=== PATIENT | female | born 1985 | race American Indian/Alaskan Native ===

== ENCOUNTER 2017-09-25 07:58 | Outpatient (CLI) | payer BC ==
--- NOTE | 2017-09-25 08:53 | Mammography Report ---
Bilateral digital screening mammogram with CAD. Findings: There are scattered fibroglandular densities. In the right breast at the 6:00 position, there is an ill-defined rounded asymmetric density. No Architectural distortion or suspicious calcifications are seen. The left breast is unremarkable. Impression: Right parenchymal asymmetry. BI-RADS code: 0. Recommendation: Spot compression images and ultrasound if needed.
--- NOTE | 2017-09-25 15:57 | Mammography Report ---
Diagnostic right mammogram and targeted right breast ultrasound. History: Recall for asymmetry. Findings: The spot compression image in the MLO projection and a straight effacement of the previously noted density which is not seen on the 90 degree lateral medial view. On the spot compression view in the CC projection, there is minimal residual density medially, with partial effacement. Sonographic evaluation of the medial aspect of the left breast demonstrates a sharply circumscribed ovoid shaped hypoechoic lesion measuring 9.2 x 3.5 x 8.7 mm. Low anterior echoes are present, but no acoustic shadowing or other suspicious findings. This does not correlate in size or location to the mammographic asymmetry. Impression: Subcentimeter benign-appearing lesion at the 12:00 position of the right breast. BI-RADS code: 3. Recommendation: 6 month followup targeted ultrasound.
== END 2017-09-25 07:59 | disposition home or self-care (01) ==
LOC: MAMMO 07:58
PROVIDERS: ATTEND Internal Medicine
DX: Z12.31 Encounter for screening mammogram for malignant neoplasm of breast (principal); N64.89 Other specified disorders of breast
CPT/HCPCS: 77067

== ENCOUNTER 2019-02-26 10:28 | Outpatient (CLI) | payer BC ==
--- NOTE | 2019-02-26 13:26 | Mammography Report ---
RIGHT BREAST ULTRASOUND AND RIGHT DIGITAL DIAGNOSTIC MAMMOGRAM: 02/26/19 10:28:00 CLINICAL: The ultrasound was performed as a followup for a probably benign hypoechoic lesion at 12 o'clock identified on 09/25/17. She did not return for short-term followup as recommended. She has had a reduction mammoplasty. COMPARISON:09/25/17 mammogram and right breast ultrasound FINDINGS: Ultrasound of the right breast was performed at 12 o'clock and failed to demonstrate a lesion to correlate with the previously described oval 9 mm hypoechoic lesion. At the time of the ultrasound, the patient pointed out a palpable lump in the outer breast and ultrasound of this area demonstrated a solid irregular hypoechoic shadowing mass at 9 o'clock 6 cm from the nipple. It measures 6 x 7 x 6 mm. ML, MLO and spot magnification MLO and CC views were performed and demonstrated an irregular spiculated mass at 9 o'clock which correlates with the mass identified by ultrasound. The mass is new compared to the last mammogram. No other mass, architectural distortion or suspicious calcifications. IMPRESSION: A suspicious 7 mm right breast mass at 9 o'clock 6 cms from the nipple. Recommend ultrasound-guided needle biopsy. BI-RADS CATEGORY: 4--Suspicious I discussed the findings and the recommendation for needle core biopsy with the patient at the time of the examination. COMMENT: 1. Dense breast tissue, i.e., adenosis, fibrocystic changes, etc., may obscure an underlying neoplasm. 2. Approximately 10% of cancers are not detected with mammography. 3. A negative mammography report should not delay biopsy if a clinically suspicious mass is present. COMMENT: Patient follow-up letters are generated by our [employer] application.
--- NOTE | 2019-02-26 13:52 | Ultrasound Report ---
ULTRASOUND PELVIC COMPLETE ULTRASOUND TRANSVAGINAL HISTORY: Ovarian cyst bilateral. COMPARISON: None at this facility. TECHNIQUE: Transabdominal and transvaginal ultrasound with color doppler interrogation. FINDINGS: Uterus: The uterus is anteverted. The uterus measures 8.8 x 4.5 x 5.0 cm. There is no evidence for uterine fibroid disease. There is a focal myometrial calcification in the posterior wall measuring 4 mm of doubtful clinical significance. The cervix is unremarkable. Endometrium: 4 mm. No focal abnormality. Right ovary: 3.3 x 2.1 x 2.6 cm. No focal abnormality. Left ovary: 3.1 x 1.8 x 2.5 cm. No focal abnormality. No pelvic fluid or mass is identified. Normal color doppler interrogation. IMPRESSION: Unremarkable transabdominal and transvaginal pelvic ultrasounds. No ovarian cysts are identified.
== END 2019-02-26 10:29 | disposition home or self-care (01) ==
LOC: US 10:28
PROVIDERS: ATTEND Internal Medicine
DX: N83.201 Unspecified ovarian cyst, right side (principal); N83.202 Unspecified ovarian cyst, left side; N63.11 Unspecified lump in the right breast, upper outer quadrant; R92.8 Other abnormal and inconclusive findings on diagnostic imaging of breast
CPT/HCPCS: 76830; 76856

== ENCOUNTER 2019-03-04 14:54 | Outpatient (CLI) | payer BC ==
--- NOTE | 2019-03-04 15:58 | Mammography Report ---
RIGHT DIGITAL DIAGNOSTIC MAMMOGRAM: 03/04/19 14:54:00 CLINICAL: For clip placement immediately status post ultrasound biopsy. COMPARISON:02/26/19 FINDINGS: A biopsy clip is now identified in the upper outer quadrant and correlates with the previously identified lesion. IMPRESSION: Concordant clip placement status post ultrasound biopsy. BI-RADS CATEGORY: 4--Suspicious Pathology pending.
--- NOTE | 2019-03-04 16:03 | Ultrasound Report ---
ULTRASOUND GUIDED NEEDLE CORE BIOPSY RIGHT BREAST WITH CLIP PLACEMENT: 03/04/19 15:30:00 CLINICAL: Right breast mass at 9 o'clock 8 cm from the nipple. COMPARISON :02/26/19 FINDINGS: The procedure was explained to the patient and informed consent was obtained. Ultrasound demonstrated the previously identified shadowing 7 mm mass.. I marked the breast with a felt tip marker and a time out was called. The skin was prepped with Betadine and anesthetized with 1% lidocaine. Needle core biopsy was performed through a tiny dermatotomy using ultrasound guidance, 2% lidocaine with epinephrine for deep anesthesia and a 14-gauge Achieve biopsy device. 4 cores were obtained and placed in formalin. A clip was deployed within the mass. The patient tolerated the procedure well and there were no apparent complications. Hemostasis was achieved with minimal effort and a sterile dressing was applied. A two view mammogram demonstrated concordant placement of the clip. She left the department in good condition and was given instructions for wound care and followup. IMPRESSION: Uncomplicated ultrasound guided needle core biopsy with clip placement right breast.
== END 2019-03-04 14:55 | disposition home or self-care (01) ==
LOC: SPVWC 14:54
PROVIDERS: ATTEND Surgery
DX: D05.11 Intraductal carcinoma in situ of right breast (principal); D05.81 Other specified type of carcinoma in situ of right breast
CPT/HCPCS: 19083; 77065; 88305; 88342; 88361; A4648; 88341

== ENCOUNTER 2019-03-19 10:08 | Outpatient (CLI) | payer BC ==
--- NOTE | 2019-03-19 13:42 | Magnetic Resonance Report ---
BILATERAL BREAST MRI WITHOUT AND WITH CONTRAST: 03/19/19 10:08:00 CLINICAL: Newly diagnosed right breast cancer. Status post ultrasound-guided needle biopsy of a mass at 9 o'clock 6 cm from the nipple on 03/04/19. Pathology: Invasive carcinoma with ductal and lobular features with overall grade 2. ER positive/WI negative and HER-2 negative, Ki-67 35% COMPARISON:02/26/19 right mammogram and right breast ultrasound and 09/25/17 bilateral screening mammogram. TECHNIQUE: Axial 1.0-mm T1 without, axial high resolution 2.0-mm T2 and axial 1.0-mm dynamic Vibrant high-resolution postcontrast T1 fat saturation sequences on a 1.5 Cheryl magnet. The examination was performed with an 8 channel dedicated Sentinelle breast coil. Post processing with CAD and subtraction was performed on an [email or web address] workstation. 18.0 cc of Multihance was injected without incident for the contrast portion of the exam. Consent was obtained prior to the administration of the contrast. FINDINGS: Right: Mild background parenchymal enhancement. The known cancer is an irregular enhancing mass with a biopsy clip at 9 o'clock 9.3 cm from the nipple. It measures 15.4 x 11.3 x 8.0 mm and demonstrates heterogeneous enhancement with mixed kinetics. 246% peak enhancement, 60% type I persistent, 36% type II plateau and 4% at 3 washout. No other mass or suspicious enhancement of the right breast. No suspicious lymph nodes. Left: Mild background parenchymal enhancement. No mass or suspicious enhancement. No suspicious lymph nodes. IMPRESSION: 1. A known 1.5 cm right breast cancer at 9 o'clock 9 cm from the nipple. 2. No additional suspicious lesion of either breast. 3. No suspicious lymph nodes. RIGHT BI-RADS 6 -- Known Cancer LEFT BI-RADS 1 - - Negative
== END 2019-03-19 10:09 | disposition home or self-care (01) ==
LOC: SPVIMAG 10:08
PROVIDERS: ATTEND Surgery
DX: C50.011 Malignant neoplasm of nipple and areola, right female breast (principal)
CPT/HCPCS: A9577; C8908; 77049

== ENCOUNTER 2019-04-07 15:15 | Outpatient (CLI) | payer BC ==
--- NOTE | 2019-04-07 16:02 | Mammography Report ---
LEFT BREAST DIGITAL SCREENING MAMMOGRAM WITH CAD HISTORY: Routine screening.Newly diagnosed right breast cancer. COMPARISON: 09/25/2017 FINDINGS: Breast Density: Scattered fibroglandular Digital CC and MLO views of the left breast demonstrate no mass, architectural distortion or suspicio us calcifications. The fibroglandular pattern is stable. IMPRESSION: No mammographic evidence of malignancy. If the clinical examination remains stable, recommend left b reast mammographic evaluation in approximately one year. BIRADS 1: Negative. According to the [employer], yearly mammograms are recommended starting at age 40 and continuing as long as a woman is in good health. Clinical Breast Exams should be part of a period ic health exam-about every 3 years for women in their 20s and 30s and every year for women 40 and ove r. Breast self exam is an option for women starting in their 20s. Any breast change noted on a breast self exam should be reported promptly to the patient's healthcare provider. Breast MRI is recommende d for women with an approximately 20-25% or greater lifetime risk of breast cancer, including women w ith a strong family history of breast or ovarian cancer and women who have been treated for Hodgkin's disease. A negative Mammography report should not discourage follow up or biopsy of a clinically significant f inding and/or abnormality. Dense breast tissue may obscure small neoplasms. This examination was interpreted with the benefit of Computer-aided Detection analysis. The patient will be entered into a reminder system with a target due date for the next screening mamm ogram. Signer Name: Des Lima MD Signed: 04/07/2019 3:58 PM Workstation Name: [id number]
== END 2019-04-07 15:16 | disposition home or self-care (01) ==
LOC: SPVWC 15:15
PROVIDERS: ATTEND Surgery
DX: Z12.31 Encounter for screening mammogram for malignant neoplasm of breast (principal)
CPT/HCPCS: 77067

== ENCOUNTER 2019-05-06 06:57 | Day surgery (SDC) | payer BC ==
[~2019-05-06 06:57] MED LIST: ANCEF/STERILE WATER 2 GM/20 ML IV NR; LACTATED RINGERS 1,000 ML IV SCH; NEURONTIN PO NR; SUBLIMAZE IV PRN; TRANSDERM-SCOP TD NR; VERSED IV NR
--- NOTE | 2019-05-06 07:32 | Anesthesia Day of Surgery ---
Anesthesia Day of Surgery - Day of Surgery Patient Examined: Yes Patient H&P Reviewed: Yes Patient is NPO: Yes
--- NOTE | 2019-05-06 07:32 | Anesthesia Consultation ---
Anesthesia Consult and Med Hx Date of service: 05/06/19 - Airway Anesthetic Teeth Evaluation: Good ROM Head & Neck: Adequate Mental/Hyoid Distance: Adequate Mallampati Class: Class II Intubation Access Assessment: Probably Good - Pulmonary Exam CTA: Yes - Cardiac Exam Cardiac Exam: RRR - Pre-Operative Health Status ASA Pre-Surgery Classification: ASA2 Proposed Anesthetic Plan: General Nerve Block: PEC - Pulmonary Hx Smoking: Yes (STOPPED X 2 YRS) Hx Respiratory Symptoms: No Hx Sleep Apnea: No (HORACIO PRE SCREEN NEGATIVE) - Cardiovascular System Hx Hypertension: No Hx Heart Attack/AMI: No Hx Percutaneous Transluminal Coronary Angioplasty (PTCA): No Hx Cardia Arrhythmia: No - Central Nervous System Hx Seizures: No CVA: No Hx Psychiatric Problems: Yes (anxiety; prn ativan) - Gastrointestinal Hx Gastroesophageal Reflux Disease: No - Endocrine Hx Renal Disease: No Hx Liver Disease: No Hx Insulin Dependent Diabetes: No Hx Non-Insulin Dependent Diabetes: No Hx Thyroid Disease: No - Other Systems Hx Alcohol Use: Yes (WINE QD) Hx Cancer: Yes (newly diagnosed breast ca) - Additional Comments Anesthesia Medical History Comments: No hx anesthetic complications.
[2019-05-06] MEDS ORDERED: DILAUDID IV PRN (07:33)
[2019-05-06] MEDS ORDERED: XYLOCAINE 1% 20 mL ONE (07:41)
[2019-05-06] MEDS ORDERED: DIPRIVAN 10 MG/ML IV ONE (07:45)
[2019-05-06] MEDS ORDERED: SUBLIMAZE ONE (07:46)
[2019-05-06] MEDS ORDERED: VERSED ONE (07:46)
[2019-05-06] MEDS ORDERED: XYLOCAINE MPF 2% ONE (07:49)
[2019-05-06] MEDS ORDERED: NACL P/F VIAL (10 ML) 10 ML ONE (08:07)
[2019-05-06] MEDS ORDERED: METHYLENE BLUE ONE (08:07)
[2019-05-06] MEDS ORDERED: MARCAINE-EPI 0.5%-1:200,000 INFILTRATI ONE (08:26)
[2019-05-06] MEDS ORDERED: DECADRON ONE ×2 (08:26→09:26)
[2019-05-06] MEDS ORDERED: REGLAN ONE (09:26)
[2019-05-06] MEDS ORDERED: ZOFRAN ONE (09:26)
[2019-05-06] MEDS ORDERED: DILAUDID ONE (10:15)
[2019-05-06] MEDS ORDERED: WATER FOR IRRIG STERILE IR ONE (10:28)
[2019-05-06] MEDS ORDERED: METHYLENE BLUE IRRIGATION ONE (10:29)
[2019-05-06] MEDS ORDERED: NACL P/F VIAL (10 ML) INFILTRATI ONE (10:30)
--- NOTE | 2019-05-06 10:44 | Mammography Report ---
Right breast mammographic guided wire localization INDICATION: Recent diagnosis of right breast cancer, excisional procedure today COMPARISON: Right mammograms 02/26/2019 and 03/04/2019 Procedure was discussed with the patient in advance. Patient reports no pertinent allergies. Timeout was performed. The area of recent biopsy was targeted. Based on analysis of mammograms, targeting was performed just posterior to the clip location. Under local anesthesia using aseptic technique and a Kopan's type wire needle assembly, via a lateral approach the localization was performed successfully . Site was secured. An image was annotated. Patient tolerated the procedure well and was sent to the operating suite in good condition. IMPRESSION: Successful right breast mammographic guided wire localization Signer Name: Eddy Ghosh MD Signed: 05/06/2019 10:39 AM Workstation Name: [id number]
--- NOTE | 2019-05-06 11:36 | Mammography Report ---
Right breast tissue specimen radiograph INDICATION: Excisional procedure today, recent diagnosis of right breast cancer Tissue specimen contains the end of the wire and the site of recent biopsy including the clip and are a of density and distortion. Signer Name: Eddy Ghosh MD Signed: 05/06/2019 11:32 AM Workstation Name: [id number]
--- NOTE | 2019-05-06 11:44 | Short Stay Summary ---
Short Stay Documentation Date of service: 05/06/19 - History H&P: obtained from office - Allergies and Medications Current Medications: Allergies No Known Allergies Allergy (Verified 04/29/19 09:57) Home Medications Medication Instructions Recorded Confirmed Last Taken Type LORazepam [Ativan] 1 mg PO TID PRN 04/29/19 04/29/19 Unknown History HYDROcodone/APAP 5-325 [[place] 1 each PO Q6HR PRN #15 tablet 05/06/19 Unknown Rx 5/325] Active Medications Cefazolin Sodium (Ancef/Sterile Water 2 Gm/20 Ml) 2 gm IV PREOP NR Stop: 05/06/19 18:00 Celecoxib (Celebrex) 200 mg PO PREOP NR Stop: 05/06/19 23:59 Last Admin: 05/06/19 08:40 Dose: 200 mg Documented by: Fentanyl (Sublimaze) 100 mcg IV ONCE PRN PRN Reason: sedation for nerve block Last Admin: 05/06/19 08:58 Dose: 100 mcg Documented by: Gabapentin (Neurontin) 300 mg PO PREOP NR Stop: 05/06/19 23:59 Last Admin: 05/06/19 08:40 Dose: 300 mg Documented by: Hydromorphone HCl (Dilaudid) 0.5 mg IV Q10MIN PRN PRN Reason: Pain , Severe (7-10) Stop: 05/06/19 20:00 Lactated Ringer's (Lactated Ringers) 1,000 mls @ 100 mls/hr IV DIRECT MICHAEL Last Admin: 05/06/19 10:00 Dose: 100 mls/hr Documented by: Midazolam HCl (Versed) 2 mg IV PREOP NR Stop: 05/06/19 23:59 Last Admin: 05/06/19 08:58 Dose: 2 mg Documented by: Scopolamine (Transderm-Scop) 1 each TD PREOP NR Stop: 05/06/19 23:59 Last Admin: 05/06/19 08:40 Dose: 1 each Documented by: - Brief post op/procedure progress note Date of procedure: 05/06/19 Pre-op diagnosis: Right breast cancer of the upper outer quadrant Post-op diagnosis: same Procedure: Right needle localization partial mastectomy with SLNB Anesthesia: GETA Findings: Wire and clip present within radiograph specimen Surgeon: CIRILO LILLY Roving Technician: JEANNE SIMMS Estimated blood loss: minimal Pathology: list (right partial mastectomy; x2 SLNs) Specimen disposition: to lab Condition: stable - Disposition Condition at discharge: Good Disposition: DC-01 TO HOME OR SELFCARE Short Stay Discharge Plan Activity: other (no heavy lifting) Diet: regular Wound: keep clean and dry (may shower in 48 hours; no baths, pools or lakes; wear breast binder) Follow up with: MATTI ASCENCIO MD [Primary Care Provider] - 7 Days CIRILO LILLY MD [Staff Physician] - 7 Days Prescriptions: HYDROcodone/APAP 5-325 [[place] 5/325] 1 each PO Q6HR PRN #15 tablet PRN Reason: Pain
--- NOTE | 2019-05-06 11:51 | Operative Report ---
Operative Report Operative Report: Operative Report: May 06, 2019 Preoperative diagnosis: Right breast cancer of the upper outer quadrant Postoperative diagnosis: Same Procedure: Right needle localization partial mastectomy of the upper outer quadrant and SLNB Surgeon: Mercedes Desir MD Wood Mechanist: Rachel Marte MD Anesthesia: General Findings: Right wire and clip present within radiograph specimen; x 2 SLN Complications: None EBL: Minimal Disposition: PACU in good condition Indications for operative procedure: This is a 33 year old lady with newly diagnosed right breast cancer of the upper outer quadrant, Stage I ER positive, right breast mass at the 9:00 position 8 cm from the nipple. Recommendations are to proceed with breast conservation. She understands the role of adjuvant radiation therapy and Oncotype DX that will be obtained by medical oncology. She wished to proceed with the above procedure. Procedure in detail: The patient was taken to radiology for wire placement for localization known area of cancer. Anesthesia placed right pectoral block. Patient was then taken to the operating room. Gen. anesthesia was administered. The right nipple was injected with radioisotope and with 1 cc of methylene blue with 1 cc of saline (patient with history of bilateral reduction mammoplasty). Right breast and axilla were prepped and draped in the normal sterile operative fashion. The wire was identified. Timeout was performed. Gamma probe was inserted into the axilla. The area of hot spot was identified. A right axillary incision was made with a 15 blade knife with dissection taken down to the subcutaneous tissues. The axillary fascia was opened with the Bovie cautery. 2 SLNs were identified. All remaining counts were less than 10% of the highest count. Lymph node was sent to pathology for permanent processing. Hemostasis was obtained in the right axillary cavity. Axillary cavity was appropriately irrigated and suctioned. Hemostasis was noted. Axillary fascia was approximated and closed using interrupted 3-0 Vicryl and the skin brought together and closed using a running 4-0 Monocryl followed by skin affix. Attention was then taken towards the right breast. Ultrasound was used as well to identify the area of known cancer. A lateral breast incision was made with a 15 blade knife and dissection taken down to subcutaneous tissues. First began raising of the lateral flap with removal of the wire from the skin with dissection take down to the pectoralis muscle, followed by raising of the medial flap, superior flap and inferior flap with all flaps taken down to the pectoralis muscle. The breast area of concern was appropriately removed posteriorly from the pectoralis muscle with the aid of the Bovie cautery. The wire was not encountered. Specimen was marked and then sent to pathology and radiology; radiograph specimen with wire and clip present. Patient with history of reduction mammoplasty with arrangement of tissues noted. Breast cavity was irrigated and hemostasis was obtained. The posterior deep breast tissues were approximated and closed using interrupted 3-0 Vicryl. The subcutaneous tissues were approximated and closed using interrupted 3-0 Vicryl followed by closing of the skin with a running 4-0 Monocryl and skin affix. The patient tolerated surgery very well and she was awaken from anesthesia without any complication and transported to PACU in good condition.
[2019-05-06] MEDS ORDERED: NORCO 5/325 PO PRN (12:16)
--- NOTE | 2019-05-06 12:40 | Post Anesthesia Evaluation ---
- Post Anesthesia Evaluation Patient Participated: Yes Airway Patent: Yes Stable Respiratory Function: Yes Nausea/Vomiting: No Temp > 96.8F: Yes Pain Manageable: Yes Adequeate Hydration: Yes Anesthesia Complications: No Block Receding Appropriately: Not Applicable (block for post op analgesia)
[2019-05-06 14:43] VITALS: BP 130/75
== END 2019-05-06 13:45 | disposition home or self-care (01) ==
LOC: OR 06:57
PROVIDERS: ATTEND Surgery
DX: C50.411 Malignant neoplasm of upper-outer quadrant of right female breast (principal); I89.8 Other specified noninfective disorders of lymphatic vessels and lymph nodes; E78.00 Pure hypercholesterolemia, unspecified; F41.9 Anxiety disorder, unspecified; Z72.89 Other problems related to lifestyle; Z79.899 Other long term (current) drug therapy; Z87.891 Personal history of nicotine dependence
CPT/HCPCS: 19281; 19301; 38525; 38792; 64450; 76098; 78800; 88307; 88341; 88342; A9541; J0690; J1100; J1170; J2250; J2405; J2704; J2765; J3010; J7120; Q9968; 88333

== ENCOUNTER 2019-05-07 13:59 | Observation (INO) | payer BC ==
[2019-05-07] MEDS ORDERED: LACTATED RINGERS 1,000 ML IV SCH ×2 (14:00→19:00)
[2019-05-07] MEDS ORDERED: LACTATED RINGERS 1,000 ML ONE ×2 (14:28→18:31)
--- NOTE | 2019-05-07 15:42 | Anesthesia Day of Surgery ---
Anesthesia Day of Surgery - Day of Surgery Patient Examined: Yes Patient H&P Reviewed: Yes Patient is NPO: Yes
--- NOTE | 2019-05-07 15:43 | Anesthesia Consultation ---
Anesthesia Consult and Med Hx Date of service: 05/07/19 - Airway Anesthetic Teeth Evaluation: Good ROM Head & Neck: Adequate Mental/Hyoid Distance: Adequate Mallampati Class: Class I Intubation Access Assessment: Good - Pulmonary Exam CTA: Yes - Cardiac Exam Cardiac Exam: RRR - Pre-Operative Health Status ASA Pre-Surgery Classification: ASA2 Proposed Anesthetic Plan: General - Pulmonary Hx Smoking: Yes (STOPPED X 2 YRS) Hx Respiratory Symptoms: No Hx Sleep Apnea: No (HORACIO PRE SCREEN NEGATIVE) - Cardiovascular System Hx Hypertension: No Hx Heart Attack/AMI: No Hx Percutaneous Transluminal Coronary Angioplasty (PTCA): No Hx Cardia Arrhythmia: No - Central Nervous System Hx Seizures: No CVA: No Hx Psychiatric Problems: Yes (anxiety; prn ativan) - Gastrointestinal Hx Gastroesophageal Reflux Disease: No - Endocrine Hx Renal Disease: No Hx Liver Disease: No Hx Insulin Dependent Diabetes: No Hx Non-Insulin Dependent Diabetes: No Hx Thyroid Disease: No - Other Systems Hx Alcohol Use: Yes (WINE QD) Hx Cancer: Yes (newly diagnosed breast ca)
[2019-05-07] MEDS ORDERED: VERSED IV NR (16:00)
[2019-05-07] MEDS ORDERED: XYLOCAINE MPF 2% ONE (16:00)
[2019-05-07] MEDS ORDERED: VERSED ONE (16:00)
[2019-05-07] MEDS ORDERED: SUBLIMAZE ONE (16:00)
[2019-05-07] MEDS ORDERED: DIPRIVAN 10 MG/ML IV ONE (16:01)
[2019-05-07] MEDS ORDERED: SUBLIMAZE IV ONE (16:41)
[2019-05-07] MEDS ORDERED: ANCEF/STERILE WATER 2 GM/20 ML IV NR (16:55)
[2019-05-07] MEDS ORDERED: ZOFRAN ONE (17:16)
[2019-05-07] MEDS ORDERED: REGLAN ONE (17:16)
[2019-05-07] MEDS ORDERED: DECADRON ONE (17:16)
[2019-05-07] MEDS ORDERED: XYLOCAINE 1% 20 mL INFILTRATI ONE (17:21)
[2019-05-07] MEDS ORDERED: MARCAINE-EPI/PF 0.25%-1:200,000 INFILTRATI ONE (17:21)
[2019-05-07 17:55] LABS: Hematocrit 25.2 % (30.3-42.9); Hemoglobin 8.5 gm/dl (10.1-14.3)
[2019-05-07] MEDS ORDERED: BENADRYL PO PRN (18:54)
[2019-05-07] MEDS ORDERED: PERCOCET 5/325 PO PRN (18:54)
[2019-05-07] MEDS ORDERED: ZOFRAN IV PRN (18:54)
[2019-05-07] MEDS ORDERED: TYLENOL PO PRN (18:54)
[2019-05-07] MEDS ORDERED: SODIUM CHLORIDE FLUSH SYRINGE 10 ML IV PRN (18:54)
[2019-05-07] MEDS ORDERED: DILAUDID PO PRN (18:54)
[2019-05-07] MEDS ORDERED: REGLAN PO PRN (18:54)
--- NOTE | 2019-05-07 18:54 | Short Stay Summary ---
Short Stay Documentation Date of service: 05/07/19 - History H&P: obtained from office - Allergies and Medications Current Medications: Allergies No Known Allergies Allergy (Verified 04/29/19 09:57) Home Medications Medication Instructions Recorded Confirmed Last Taken Type LORazepam [Ativan] 1 mg PO TID PRN 04/29/19 05/07/19 Unknown History HYDROcodone/APAP 5-325 [[place] 1 each PO Q6HR PRN #15 tablet 05/06/19 05/07/19 06:00 Rx 5/325] Active Medications Cefazolin Sodium (Ancef/Sterile Water 2 Gm/20 Ml) 2 gm IV PREOP NR Stop: 05/08/19 16:54 Lactated Ringer's (Lactated Ringers) 1,000 mls @ 75 mls/hr IV DIRECT MICHAEL Last Admin: 05/07/19 14:30 Dose: 75 mls/hr Documented by: Midazolam HCl (Versed) 2 mg IV PREOP NR Stop: 05/07/19 23:59 Last Admin: 05/07/19 16:55 Dose: 2 mg Documented by: - Brief post op/procedure progress note Date of procedure: 05/07/19 Pre-op diagnosis: Right breast hematoma Post-op diagnosis: same Procedure: Right breast hematoma evacuation Anesthesia: GETA Findings: Right breast hematoma evacuation of 400 cc Surgeon: CIRILO LILLY Etcher Enameling: JEANNE SIMMS Estimated blood loss: other (400 hematoma evacuated, 50 cc blood loss) Pathology: none Condition: stable - Disposition Condition at discharge: Good Disposition: DC/TX-02 SHRT-TRM GEN HOSP IP Short Stay Discharge Plan Activity: other (no heavy lifting) Diet: regular Wound: keep clean and dry (may shower 48 hours) Follow up with: MATTI ASCENCIO MD [Primary Care Provider] - 7 Days CIRILO LILLY MD [Staff Physician] - 7 Days
[2019-05-07] MEDS ORDERED: MORPHINE IV PRN (18:56)
--- NOTE | 2019-05-07 19:07 | Operative Report ---
Operative Report Operative Report: Operative date: 05/07/2019 Preoperative diagnosis: Right breast hematoma Postoperative diagnosis: Same Procedure: Right breast hematoma evacuation Surgeon:Mercedes Desir M.D. Asst.: Rachel Marte M.D. Anesthesia: Gen. Findings: Right breast hematoma evacuation of 400 mL with generalized oozing from multiple breast tissues sites Estimated blood loss: 50 mL Drains: 19 Lao KYA drain Complications: None Disposition: PACU in good condition Indications for operative procedure: This is a 33-year-old premenopausal -[place] with newly diagnosed stage I right breast cancer of the upper outer quadrant. Patient postop day 1 from right needle localization partial mastectomy with sentinel lymph node biopsy. Patient was seen in the office today with findings of a right breast hematoma with recommendations for right breast hematoma evacuation given pain and size of right breast hematoma. Aspiration was performed in the office with only 4 cc obtained. During surgery hemostasis was noted prior to closure. Patient reports she was doing some lifting yesterday evening and shortly afterwards she heard a "pop" and then later overnight and this morning she noticed swelling of her right breast with associated pain. Patient wished to proceed with the above procedure. Procedure in detail: Patient was taken to the operating room and laid supine. General anesthesia was administered. Right breast hematoma was identified on physical exam of the lateral breast. The right breast was prepped and draped in the normal sterile operative fashion. Prior right lateral breast incision at the 9 o'clock position was opened with evacuation of 400 mL of hematoma. Breast tissue was noted for multiple sites of oozing/bleeding. Breast cavity made hemostatic using the Bovie cautery as well as using 3-0 Vicryl interrupted suture ties. Breast cavity was irrigated and suctioned with hemostasis noted. Christine was then placed into the breast cavity. 19 Lao drain was placed and sutured into place on the skin. Hemostasis was noted. The deeper tissues were approximated and closed using interrupted 3-0 Vicryl and the skin closed brought together using a running 4-0 Monocryl followed by Dermabond. She tolerated surgery very well and her breast was wrapped with an RAFAEL bandage and breast binder and she was transported to PACU in good condition. Hemoglobin obtained and stable.
[2019-05-07] MEDS ORDERED: DILAUDID ONE (19:10)
[2019-05-07] MEDS: DILAUDID IV PRN ×3 (19:11→19:39)
--- NOTE | 2019-05-07 19:49 | Post Anesthesia Evaluation ---
- Post Anesthesia Evaluation Patient Participated: Yes Airway Patent: Yes Stable Respiratory Function: Yes Nausea/Vomiting: No Temp > 96.8F: Yes Pain Manageable: Yes Adequeate Hydration: Yes Anesthesia Complications: No Block Receding Appropriately: Not Applicable Patient on Ventilator: No
[2019-05-07] MEDS ORDERED: COLACE PO SCH (22:00)
--- NOTE | 2019-05-08 08:31 | Progress Note ---
Assessment and Plan This is a 33 year old lady with newly diagnosed right breast cancer of the upper outer quadrant; Stage I, POD#1 right breast hematoma evacuation and POD#2 right partial mastectomy with SLNB. 1. No acute events overnight. 2. Patient with some complaints of mild pain, hard time sleeping last night. 3. Right breast incision healing well; no hematoma; KYA drain to bulb suction. 4. KYA drain education given, patient understands no heavy lifting at all. OOB to hallway. 5. D/C planning for today. Subjective Date of service: 05/08/19 Principal diagnosis: Right breast cancer of upper outer quadrant with postoperative hematoma Interval history: POD#1 right breast hematoma evacuation Objective - Constitutional Vitals: Vital Signs - 12hr 05/08/19 05/08/19 00:11 04:20 Temperature 98.1 F 98.4 F Pulse Rate 71 69 Respiratory 20 20 Rate Blood Pressure 120/63 Blood Pressure 118/66 [Left] O2 Sat by Pulse 98 98 Oximetry General appearance: Present: no acute distress - EENT Eyes: PERRL, EOM intact ENT: hearing intact, clear oral mucosa, dentition normal Ears: bilateral: normal - Neck Neck: normal ROM - Respiratory Respiratory: bilateral: CTA - Breasts Breasts: other (left breast incision c/d/i; healing well; no hematoma; KYA drain to bulb suction) - Cardiovascular Rhythm: regular Extremities: no ischemia, pulses intact, pulses symmetrical, No edema, normal temperature, normal color, Full ROM - Gastrointestinal General gastrointestinal: Present: soft, non-tender, non-distended Rectal Exam: deferred - Genitourinary Female genitourinary: deferred - Integumentary Integumentary: clear, warm, dry - Musculoskeletal Musculoskeletal: strength equal bilaterally - Neurologic Neurologic: CNII-XII intact, moves all extremities - Psychiatric Psychiatric: appropriate mood/affect, intact judgment & insight, memory intact, cooperative - Labs CBC & Chem 7: 05/07/19 17:49 Labs: Abnormal lab results 05/07/19 Range/Units 17:49 Hgb 8.5 L (10.1-14.3) gm/dl Hct 25.2 L (30.3-42.9) % Medications & Allergies - Medications Allergies/Adverse Reactions: Allergies No Known Allergies Allergy (Verified 04/29/19 09:57) Home Medications: Home Medications Medication Instructions Recorded Confirmed Last Taken Type LORazepam [Ativan] 1 mg PO TID PRN 04/29/19 05/07/19 Unknown History HYDROcodone/APAP 5-325 [[place] 1 each PO Q6HR PRN #15 tablet 05/06/19 05/07/19 05/07/19 06:00 Rx 5/325] Sulfamethoxazole/Trimethoprim 1 each PO BID #14 tablet 05/08/19 Unknown Rx [Bactrim DS TAB] oxyCODONE /ACETAMINOPHEN [Percocet 1 tab PO Q6HR PRN #12 tablet 05/08/19 Unknown Rx 5/325] Active Medications: Generic Name Dose Route Start Last Admin Trade Name Freq PRN Reason Stop Dose Admin Acetaminophen 650 mg 05/07/19 18:54 Tylenol PO Q6H PRN Pain MILD(1-3)/Fever >100.5/PIZANO Cefazolin Sodium 2 gm 05/07/19 16:55 Ancef/Sterile Water 2 Gm/20 Ml IV 05/08/19 16:54 PREOP NR Diphenhydramine HCl 25 mg 05/07/19 18:54 05/08/19 03:50 Benadryl PO 25 mg Q8H PRN Administration Itching Docusate Sodium 100 mg 05/07/19 22:00 05/07/19 23:18 Colace PO 100 mg BID MICHAEL Administration Hydromorphone HCl 2 mg 05/07/19 18:54 05/08/19 02:37 Dilaudid PO 2 mg Q6H PRN Administration Pain , Severe (7-10) Hydromorphone HCl 0.5 mg 05/07/19 19:05 05/07/19 19:39 Dilaudid IV 0.5 mg Q10MIN PRN Administration Pain , Severe (7-10) Lactated Ringer's 1,000 mls @ 125 mls/hr 05/07/19 19:00 Lactated Ringers IV DIRECT MICHAEL Metoclopramide HCl 10 mg 05/07/19 18:54 Reglan PO Q6H PRN Nausea And Vomiting Morphine Sulfate 2 mg 05/07/19 18:56 Morphine IV Q4H PRN Pain, Moderate (4-6) Ondansetron HCl 4 mg 05/07/19 18:54 Zofran IV Q8H PRN N/V unrelieved by Reglan Oxycodone/Acetaminophen 1 tab 05/07/19 18:54 05/07/19 23:18 Percocet 5/325 PO 1 tab Q6H PRN Administration Pain, Moderate (4-6) Sodium Chloride 10 ml 05/07/19 18:54 Sodium Chloride Flush Syringe 10 Ml IV PRN PRN LINE FLUSH
[2019-05-08 10:11] VITALS: BP 133/47
== END 2019-05-08 10:00 | disposition home or self-care (01) ==
LOC: OR 13:59 → OB 18:54
PROVIDERS: ADMIT Surgery; ATTEND Surgery
DX: C50.919 Malignant neoplasm of unspecified site of unspecified female breast (principal); N64.89 Other specified disorders of breast
CPT/HCPCS: 10140; 36415; 85014; 85018; 96374; G0378; J1100; J1170; J2250; J2405; J2704; J2765; J3010; J7120

== ENCOUNTER 2019-07-01 12:49 | Day surgery (SDC) | payer BC ==
--- NOTE | 2019-06-30 14:32 | Short Stay Summary ---
Short Stay Documentation Date of service: 07/01/19 - History Principal diagnosis: breast cancer H&P: obtained from office - Allergies and Medications Current Medications: Allergies No Known Allergies Allergy (Verified 06/29/19 14:43) Home Medications Medication Instructions Recorded Confirmed Last Taken Type Black Seed Oil 5 ml PO DAILY 06/29/19 Unknown History Calcium D-Gluconate 1 tab PO DAILY 06/29/19 Unknown History Dextroamphetamine/Amphetamine 20 mg PO BID 06/29/19 06/29/19 Unknown History [Adderall] Multivit/Iron/Folic Acid/Hb179 1 each PO 06/29/19 Unknown History [Womens Multivit Hi Potency Tab] [place]-3/Dha/Epa/Fish Oil [Fish Oil 1,600 mg PO 06/29/19 Unknown History 1,600 mg/5 ml Liquid] - Physical exam General appearance: no acute distress Integumentary: no rash, no growths, no abnormal pigmentation HEENT: Atraumatic Lungs: Normal air movement Neurological: Normal speech - Brief post op/procedure progress note Date of procedure: 07/01/19 (dictation: [id number]) Pre-op diagnosis: breast cancer Post-op diagnosis: same Procedure: Port placement with US guidance IVF 400cc EBL <10cc Anesthesia: MAC Findings: normal anatomy Surgeon: THIERRY SILVA Estimated blood loss: minimal Pathology: none Condition: stable - Hospital course Hospital course: uneventful - Disposition Condition at discharge: Stable Disposition: DC-01 TO HOME OR SELFCARE Short Stay Discharge Plan Diet: regular Wound: open to air, keep clean and dry Special Instructions: no heavy lifting Additional Instructions: Post Operative Instructions May shower tomorrow. Pat dry the wound or wounds. After surgery, start with a light diet. Consider having a liquid diet first. If you do well, you can advance to a regular diet as you feel comfortable. Apply an ice pack to the wound or wounds for 10-20 minutes at a time. Do this at least 4-5 times a day. You can do it more if he would like. Alternate the use of ibuprofen and Tylenol for the first 2 days. I want you to take these on a scheduled basis. Take 600 mg of ibuprofen every 6 hours. Take 500 mg of Tylenol every 6 hours. You should alternate these 2 medicines. In other words, beginning with the ibuprofen. After 3 hours, take the Tylenol. Keep alternating the 2 drugs every 3 hours. Do this on a scheduled basis for the first 2 days. After that, you can take them as needed. It is very important that you use the prescription pain medicine only for very severe pain. Do not take the prescription medicine before you try using the ibuprofen and Tylenol. We will call you in a couple of days to see how youre doing. If you have any questions or concerns, always feel free to call the clinic at any time. Follow up with: MATTI ASCENCIO MD [Primary Care Provider] - 7 Days Forms: Outpatient Surgery DC Inst. Prescriptions: HYDROcodone/APAP 5-325 [[place] 5/325] 1 each PO Q6HR PRN #10 tablet PRN Reason: Pain , Severe (7-10)
[~2019-07-01 12:49] MED LIST changes: +ACETAMINOPHEN 500 MG TAB PO ONE; -ANCEF/STERILE WATER 2 GM/20 ML IV NR; +CELECOXIB 200 MG CAP PO NR; +GABAPENTIN 300 MG CAP PO SCH; -LACTATED RINGERS 1,000 ML IV SCH; -NEURONTIN PO NR; +SODIUM CHLORIDE 0.9% 1000 ML 1,000 ML IV SCH; -SUBLIMAZE IV PRN; -TRANSDERM-SCOP TD NR; -VERSED IV NR; +ceFAZolin/Water 2 GM/20 ML 2 GM/20 ML SYRINGE IV NR
--- NOTE | 2019-07-01 13:20 | Anesthesia Consultation ---
Anesthesia Consult and Med Hx Date of service: 07/01/19 - Airway Anesthetic Teeth Evaluation: Good ROM Head & Neck: Adequate Mental/Hyoid Distance: Adequate Mallampati Class: Class II Intubation Access Assessment: Good - Pulmonary Exam CTA: Yes - Cardiac Exam Cardiac Exam: RRR - Pre-Operative Health Status ASA Pre-Surgery Classification: ASA3 Proposed Anesthetic Plan: General, MAC - Pulmonary Hx Smoking: Yes (SINCE AGE 16; STOPPED 2017) Hx Respiratory Symptoms: No Hx Sleep Apnea: No (HORACIO PRE SCREEN NEGATIVE) - Cardiovascular System Hx Cardia Arrhythmia: No - Central Nervous System Hx Seizures: No CVA: No Hx Psychiatric Problems: Yes - Gastrointestinal Hx Gastroesophageal Reflux Disease: No - Endocrine Hx Renal Disease: No Hx Liver Disease: No Hx Insulin Dependent Diabetes: No Hx Non-Insulin Dependent Diabetes: No Hx Thyroid Disease: No - Other Systems Hx Alcohol Use: Yes (WINE QD) Hx Substance Use: Yes (MARIJUANA (LAST USE 2017)) Hx Cancer: Yes
--- NOTE | 2019-07-01 13:21 | Anesthesia Day of Surgery ---
Anesthesia Day of Surgery - Day of Surgery Patient Examined: Yes Patient H&P Reviewed: Yes Patient is NPO: Yes
[2019-07-01] MEDS ORDERED: ONDANSETRON 4 MG/2 ML INJ IV PRN (13:22)
[2019-07-01] MEDS ORDERED: HEPARIN 10,000 UNITS/10 ML VIAL ONE (13:28)
[2019-07-01] MEDS ORDERED: SODIUM CHLORIDE 0.9% 250ML 250 ML ONE (13:28)
[2019-07-01] MEDS ORDERED: BUPIVACAINE/PF (0.5%) 5 MG/1 ML 30 ML VIAL INFILTRATI ONE ×2 (13:28→14:40)
[2019-07-01] MEDS ORDERED: LIDOCAINE (1%) 10 MG/1 ML VIAL 20 ML MDV ONE (13:28)
[2019-07-01] MEDS ORDERED: GELATIN SPONGE SIZE 100 TP ONE ×2 (13:28→13:29)
[2019-07-01] MEDS ORDERED: traMADol 50 MG TAB ONE (13:56)
[2019-07-01] MEDS ORDERED: ACETAMINOPHEN 500 MG TAB ONE (13:56)
[2019-07-01] MEDS ORDERED: LACTATED RINGERS 1,000 ML IV SCH (14:00)
[2019-07-01] MEDS ORDERED: MIDAZOLAM 2 MG/2 ML INJ IV NR (14:00)
[2019-07-01] MEDS ORDERED: fentaNYL 100 MCG/2 ML INJ ONE (14:01)
[2019-07-01] MEDS ORDERED: LIDOCAINE MPF (2%) 20 MG/1 ML VIAL 5 ML ONE (14:01)
[2019-07-01] MEDS ORDERED: MIDAZOLAM 2 MG/2 ML INJ ONE (14:01)
[2019-07-01] MEDS ORDERED: PROPOFOL 200 MG/20 ML VIAL IV ONE ×3 (14:02→14:44)
[2019-07-01] MEDS ORDERED: ONDANSETRON 4 MG/2 ML INJ ONE (14:26)
[2019-07-01] MEDS ORDERED: LIDOCAINE (1%) 10 MG/1 ML VIAL 20 ML MDV INFILTRATI ONE (14:39)
[2019-07-01] MEDS ORDERED: HEPARIN 10,000 UNITS/10 ML VIAL IV ONE ×2 (14:41→14:42)
[2019-07-01] MEDS ORDERED: KETOROLAC 30 MG/1 ML INJ ONE (14:52)
--- NOTE | 2019-07-01 15:14 | Fluoroscopy Report ---
FLUOROSCOPY CENTRAL VENOUS DEVICE PLACEMENT HISTORY: Breast cancer, Syxexs-j-Ayix insertion FINDINGS: 2 seconds of fluoroscopy time was provided by radiology during placement of a left IJ Infus e-a-Port. 2 AP images of the chest are presented demonstrating the tip terminating in the superior ri ght atrium. The lungs are clear. There is no evidence for pneumothorax. Normal heart and mediastinal structures. IMPRESSION: Good placement of the left Yqnbzk-y-Wfhk. No pneumothorax. Signer Name: Kevin Hodges Jr, MD Signed: 07/01/2019 3:10 PM Workstation Name: [id number]
[2019-07-01] MEDS: HYDROmorphone 1 MG/1 ML INJ IV PRN ×2 (15:29→15:38)
[2019-07-01 16:24] VITALS: BP 132/71
--- NOTE | 2019-07-01 19:52 | Operative Report ---
PREOPERATIVE DIAGNOSIS: Right breast cancer. POSTOPERATIVE DIAGNOSIS: Right breast cancer. PROCEDURES: 1. Insertion of tunneled centrally inserted central venous access device with subcutaneous port. 2. Ultrasound guidance for vascular access. ATTENDING PHYSICIAN: Karel Monsalve MD ANESTHESIA: Local MAC. ESTIMATED BLOOD LOSS: Minimal. FLUIDS: 400 mL. FINDINGS: Normal vascular anatomy. IMPLANTS: Smart Infusaport. COMPLICATIONS: None. DISPOSITION: Stable, transferred to Recovery Room. INDICATIONS: This is a 34-year-old female with a recent diagnosis of breast cancer on the right. The patient was assessed to be in need for chemotherapy. The patient will need port placement. She was referred to General Surgery. The patient is assessed to be an appropriate candidate for port placement. Procedure, risks, benefits were explained to the patient. Risks included but were not limited to infection, bleeding, pain, injury to surrounding structures, possible need for further procedures in the future. The patient understood and consented. OPERATIVE NOTE: The patient was placed on the table in supine position. Ultrasound evaluation was done to assess the subclavian vein and left internal jugular vein. The subclavian vein was very deep and sitting in close proximity to the lung. The internal jugular vein on the left was completely patent. There were no areas of any stenosis or clots. It appeared to be a much better target. Shoulder roll was placed behind the upper back. Sedation was established. The patient was prepped and draped in the usual sterile fashion. Antibiotics had been given. SCDs were in place. Time-out was called. The patient was placed in Trendelenburg position. Ultrasound again was then used to identify our access point. The skin was anesthetized with local anesthetic. Small incision was made under ultrasound guidance. Introducer needle was guided into the vein. Venous blood was easily aspirated. Guidewire was passed. Position was checked with fluoroscopy. Guidewire was then secured to the drape with a hemostat. We then moved to creating the port pocket. This area was anesthetized. Oblique incision was made along the lines of skin tension. Dissection was carried down into the subcutaneous tissue and then a pocket was created. Additional local was then administered for the tunneler that was about to be passed. Once the pocket appeared to be adequate, we then passed the tunneler up to the neck. This was done without any difficulty or complication. Catheter was brought out over the guidewire. The dilator and sheath were passed periodically and checked to make sure the guidewire was easily mobile and it was. Once the sheath was completely in place, the dilator and the wire were removed. The opening was covered and then the catheter was inserted. Position was checked with fluoroscopy, it appeared to be adequate. We then excised the distal aspect of the catheter and secured it to the port. The collar was placed over it. Port easily fit in the pocket. We had easy aspiration and flushing. The small amount of port that was exposed at the neck was then pushed into position. We checked everything with fluoroscopy. Catheter appeared to be in adequate position at its tip. There was no evidence of any kinking or bending. Locking solution was easily administered. We first aspirated easily and then injected the entire 5 mL of locking solution. The patient was then placed in reverse Trendelenburg. Additional local was injected around the port site and the catheter tract. We had excellent hemostasis. A 3-0 Vicryl was used to close the deep layer and interrupted sutures. Skin was closed with 4-0 Monocryl subcuticular stitches. Skin was cleaned and dried. Dermabond was placed. The patient tolerated the procedure well. There were no complications. All counts were correct at the end of the case. Chest x-ray showed good position of the catheter with no evidence of any complications such as pneumothorax. JOB# [id number] ELEUTERIO/SAMUEL
== END 2019-07-01 16:30 | disposition home or self-care (01) ==
LOC: OR 12:49
PROVIDERS: ATTEND Surgery
DX: C50.911 Malignant neoplasm of unspecified site of right female breast (principal); E78.00 Pure hypercholesterolemia, unspecified; F41.9 Anxiety disorder, unspecified; Z79.899 Other long term (current) drug therapy; Z87.891 Personal history of nicotine dependence; Z90.10 Acquired absence of unspecified breast and nipple; Z72.89 Other problems related to lifestyle; Z98.890 Other specified postprocedural states
CPT/HCPCS: 36561; 77001; A4649; C1788; J0690; J1170; J1644; J1885; J2250; J2405; J2704; J3010; J7030; J7050

== ENCOUNTER 2019-07-09 07:56 | Outpatient (CLI) | payer BC ==
--- NOTE | 2019-07-09 11:30 | PET Report ---
PET/CT CLINICAL: Right breast cancer status post right partial mastectomy 05/06/2019. RADIOPHARMACEUTICAL: 15.706 mCi F-18-FDG TECHNIQUE: Following the intravenous injection of F-18-FDG and an approximately 60 minute uptake period, CT and PET images from the mid skull to the upper thighs were acquired with the patient in the fasted state. No contrast was administered. The CT protocol used for this PET CT study is designed for attenuation correction and anatomic localization of PET abnormalities. This plant protection supervisor CT is not desired to produ ce and cannot replace snmrs-sc-hqt-art diagnostic CT scans with specific imaging protocols for differ ent body parts and indications. Plasma glucose at the time of this test: 83g/dl The standardized uptake values (SUV) are normalized to patient body weight and indicate the highest a ctivity concentration (SUV max) in a given disease state. FINDINGS: Brain: Physiologic uptake in the visualized regions of the brain. Neck: Physiologic FDG uptake in mucosal structures. No mass or lymphadenopathy. Chest: Physiologic FDG uptake in mediastinal blood pool and myocardium. Left Tmmqfx-p-Lcax tip is in the right atrium. Lungs: No abnormal uptake. No pulmonary nodule or mass. Pleura/pericardium: No abnormal uptake. Thoracic nodes: No abnormal uptake. Hepatobiliary: No abnormal uptake. Liver background SUV mean, as a reference for comparing FDG studie s, is 4.1. No liver mass. Spleen: No abnormal uptake. Pancreas: No abnormal uptake. Adrenal glands: No abnormal uptake. Kidneys/ureters/bladder: No abnormal uptake. Abdominopelvic nodes: No abnormal uptake. Bowel/peritoneum/mesentery: No abnormal uptake. Pelvic organs: No abnormal uptake. Bones/soft tissues: No abnormal uptake. Other findings: None. IMPRESSION: Negative study with no evidence of residual disease or metastasis. Signer Name: Des Lima MD Signed: 07/09/2019 11:25 AM Workstation Name: [id number]
== END 2019-07-09 07:57 | disposition home or self-care (01) ==
LOC: PET 07:56
PROVIDERS: ATTEND Internal Medicine Hematology & Oncology
DX: C50.411 Malignant neoplasm of upper-outer quadrant of right female breast (principal); Z87.891 Personal history of nicotine dependence; Z72.89 Other problems related to lifestyle; F12.90 Cannabis use, unspecified, uncomplicated
CPT/HCPCS: 78815; 82962; A9552

== ENCOUNTER 2019-08-04 12:10 | Outpatient (CLI) | payer BC | END 2019-08-04 12:11 | disposition home or self-care (01) | LOC: LAB 12:10 | PROVIDERS: ATTEND Internal Medicine Hematology & Oncology | DX: Z22.7 Latent tuberculosis (principal) | CPT/HCPCS: 36415; 82164 ==

== ENCOUNTER 2019-08-11 13:20 | Outpatient (CLI) | payer BC ==
[2019-08-11 14:08] LABS: Alanine Aminotransferase 13 units/L (7-56); Albumin 4.3 g/dL (3.9-5); BUN/Creatinine Ratio 19; Blood Urea Nitrogen 15 mg/dL (7-17); Calcium 9.5 mg/dL (8.4-10.2); Hemolysis Index 2
[2019-08-15 13:47] LABS: Vitamin D, 25-OH, D2 <4 ng/mL
== END 2019-08-11 13:21 | disposition home or self-care (01) ==
LOC: LAB 13:20
PROVIDERS: ATTEND Internal Medicine Hematology & Oncology
DX: Z51.11 Encounter for antineoplastic chemotherapy (principal); Z51.89 Encounter for other specified aftercare; C50.411 Malignant neoplasm of upper-outer quadrant of right female breast; E66.3 Overweight; M25.50 Pain in unspecified joint; R23.2 Flushing; Z79.899 Other long term (current) drug therapy
CPT/HCPCS: 36415; 80053; 82306; 83615; 83735; 86300

== ENCOUNTER 2019-09-18 13:37 | Emergency (ER) | payer BC ==
--- NOTE | 2019-09-18 13:48 | Event Note ---
ED Screening Note ED Screening Note: substernal CP that began yesterday states it radiates to the back sharp pain, and dull now no SOB no leg swelling PMHx breast CA just finished chemo last week, has not done radiation yet , HLD no allergies to meds LNMP: may initial assessment/diagnostic orders/clinical plan/treatment(s) is/are subject to change based on patients health status, clinical progression and re- assessment by fellow clinical providers in the ED. Further treatment and workup at subsequent clinical providers discretion. Patient/guardian urged not to elope from the ED as their condition may be serious if not clinically assessed and managed. Initial orders include: CP protocol
[2019-09-18 13:51] VITALS: BP 131/73
--- NOTE | 2019-09-18 14:31 | XRay Report ---
CHEST 2 VIEWS INDICATION / CLINICAL INFORMATION: CP. COMPARISON: 07/01/2019 FINDINGS: SUPPORT DEVICES: Stable, satisfactory device positioning. HEART / MEDIASTINUM: No significant abnormality. LUNGS / PLEURA: No significant pulmonary or pleural abnormality. No pneumothorax. ADDITIONAL FINDINGS: No significant additional findings. IMPRESSION: 1. No acute findings. Signer Name: Wero Franklin MD Signed: 09/18/2019 2:27 PM Workstation Name: [id number]
[2019-09-18 15:16] LABS: INR 0.99 (0.87-1.13)
[2019-09-18 15:17] LABS: Partial Thromboplastin Time 27.4 Sec. (24.2-36.6)
[2019-09-18 15:27] LABS: Alanine Aminotransferase 14 units/L (7-56); BUN/Creatinine Ratio 7; Blood Urea Nitrogen 5 mg/dL (7-17); Calcium 9.1 mg/dL (8.4-10.2); Hemolysis Index 15
[2019-09-18 15:33] LABS: Hematocrit 35.8 % (30.3-42.9); Hemoglobin 11.8 gm/dl (10.1-14.3); Mean Corpuscular HGB Conc 33 % (30-34); Mean Corpuscular Volume 92 fl (79-97); Platelet Count 347 K/mm3 (140-440); Red Cell Distribution Width 15.3 % (13.2-15.2)
--- NOTE | 2019-09-18 16:31 | Cat Scan Report ---
CTA CHEST WITH IV CONTRAST INDICATION: chest pain. History of breast cancer. TECHNIQUE: Axial CT images were obtained through the chest after injection of 100 mL Omnipaque 350 IV contrast. 3 plane MIP reconstructions were produced. All CT scans at this location are performed using CT dose reduction for ALARA by means of automated exposure control. COMPARISON: None available. FINDINGS: Pulmonary Arteries: No pulmonary emboli. Lungs: No significant abnormality. Trachea and Bronchi: No significant abnormality. Heart and Pericardium: No significant abnormality. Vasculature: No significant abnormality. Lymphatics: No lymphadenopathy. Additional Findings: None. Upper Abdomen: No acute findings. Skeletal Structures: No significant osseous abnormality. IMPRESSION: 1. No CT evidence for pulmonary embolism. 2. No acute findings. Signer Name: Pillo Doll MD Signed: 09/18/2019 4:27 PM Workstation Name: [id number]
--- NOTE | 2019-09-18 16:32 | Emergency Department Report ---
ED General Adult HPI - General Chief complaint: Chest Pain Stated complaint: CHEST PAIN/BACK PAIN Time Seen by Provider: 09/18/19 13:47 Source: patient Mode of arrival: Ambulatory Limitations: No Limitations - History of Present Illness Initial comments: Patient presents to the emergency department with a chief complaint of substernal chest pain that has been present for the last day. Patient also complains of shortness of breath with exertion. Patient has a recent history of breast cancer and recent chemotherapy treatment. Chest pain is made worse with deep breaths -: Sudden Location: chest Radiation: non-radiation Severity scale (0 -10): 6 Quality: sharp Consistency: constant Improves with: none Worsens with: none Associated Symptoms: denies other symptoms Treatments Prior to Arrival: none - Related Data Home Medications Medication Instructions Recorded Confirmed Last Taken Black Seed Oil 5 ml PO DAILY 06/29/19 07/01/19 06/28/19 09:00 Calcium D-Gluconate 1 tab PO DAILY 06/29/19 07/01/19 06/28/19 09:00 Dextroamphetamine/Amphetamine 20 mg PO BID 06/29/19 07/01/19 06/30/19 17:00 [Adderall] Multivit/Iron/Folic Acid/Hb179 1 each PO DAILY 06/29/19 07/01/19 06/28/19 09:00 [Womens Multivit Hi Potency Tab] [place]-3/Dha/Epa/Fish Oil [Fish Oil 1,600 mg PO DAILY 06/29/19 07/01/19 06/28/19 09:00 1,600 mg/5 ml Liquid] Previous Rx's Medication Instructions Recorded Last Taken Type HYDROcodone/APAP 5-325 [[place] 1 each PO Q6HR PRN #10 tablet 07/01/19 Unknown Rx 5/325] oxyCODONE ER [oxyCONTIN ER] 10 mg PO Q12HR #30 tablet 08/09/19 Unknown Rx Allergies Allergy/AdvReac Type Severity Reaction Status Date / Time No Known Allergies Allergy Verified 06/30/19 14:33 ED Review of Systems ROS: Stated complaint: CHEST PAIN/BACK PAIN Other details as noted in HPI Comment: All other systems reviewed and negative Constitutional: denies: chills, fever Eyes: denies: eye pain, eye discharge, vision change ENT: denies: ear pain, throat pain Respiratory: shortness of breath. denies: cough, wheezing Cardiovascular: denies: chest pain, palpitations Endocrine: no symptoms reported Gastrointestinal: denies: abdominal pain, nausea, diarrhea Genitourinary: denies: urgency, dysuria, discharge Musculoskeletal: denies: back pain, joint swelling, arthralgia Skin: denies: rash, lesions Neurological: denies: headache, weakness, paresthesias Psychiatric: denies: anxiety, depression Hematological/Lymphatic: denies: easy bleeding, easy bruising ED Past Medical Hx - Past Medical History Hx Liver Disease: No Hx Renal Disease: No Hx Seizures: No Hx HIV: No Additional medical history: breast cancer - Surgical History Hx Breast Surgery: Yes (BREAST REDUCTION , R HEMATOMA ) - Social History Smoking Status: Never Smoker Substance Use Type: None - Medications Home Medications: Home Medications Medication Instructions Recorded Confirmed Last Taken Type Black Seed Oil 5 ml PO DAILY 06/29/19 07/01/19 06/28/19 09:00 History Calcium D-Gluconate 1 tab PO DAILY 06/29/19 07/01/19 06/28/19 09:00 History Dextroamphetamine/Amphetamine 20 mg PO BID 06/29/19 07/01/19 06/30/19 17:00 History [Adderall] Multivit/Iron/Folic Acid/Hb179 1 each PO DAILY 06/29/19 07/01/19 06/28/19 09:00 History [Womens Multivit Hi Potency Tab] [place]-3/Dha/Epa/Fish Oil [Fish Oil 1,600 mg PO DAILY 06/29/19 07/01/19 06/28/19 09:00 History 1,600 mg/5 ml Liquid] HYDROcodone/APAP 5-325 [[place] 1 each PO Q6HR PRN #10 tablet 07/01/19 Unknown Rx 5/325] oxyCODONE ER [oxyCONTIN ER] 10 mg PO Q12HR #30 tablet 08/09/19 Unknown Rx ED Physical Exam - General Limitations: No Limitations General appearance: alert, in no apparent distress - Head Head exam: Present: atraumatic, normocephalic - Eye Eye exam: Present: normal appearance, PERRL, EOMI - ENT ENT exam: Present: mucous membranes moist - Neck Neck exam: Present: normal inspection - Respiratory Respiratory exam: Present: normal lung sounds bilaterally. Absent: respiratory distress - Cardiovascular Cardiovascular Exam: Present: regular rate, normal rhythm. Absent: systolic murmur, diastolic murmur, rubs, gallop - GI/Abdominal GI/Abdominal exam: Present: soft, normal bowel sounds. Absent: distended, tenderness - Extremities Exam Extremities exam: Present: normal inspection - Back Exam Back exam: Present: normal inspection - Neurological Exam Neurological exam: Present: alert, oriented X3, CN II-XII intact. Absent: motor sensory deficit - Psychiatric Psychiatric exam: Present: normal affect, normal mood - Skin Skin exam: Present: warm, dry, intact, normal color. Absent: rash ED Course Vital Signs 09/18/19 13:47 Temperature 97.8 F Pulse Rate 102 H Respiratory 102 H Rate Blood Pressure 131/73 Blood Pressure 131/73 [Right] O2 Sat by Pulse 98 Oximetry ED Medical Decision Making - Lab Data Result diagrams: 09/18/19 14:55 09/18/19 14:55 - EKG Data -: EKG Interpreted by Me EKG shows normal: sinus rhythm Rate: normal - Medical Decision Making Results discussed with patient Critical care attestation.: If time is entered above; I have spent that time in minutes in the direct care of this critically ill patient, excluding procedure time. ED Disposition Clinical Impression: Nonspecific chest pain Disposition: DC-01 TO HOME OR SELFCARE Is pt being admited?: No Does the pt Need Aspirin: No Condition: Stable Instructions: Chest Pain (ED) Additional Instructions: return if worse Referrals: STEVEN ENAMORADO MD [Primary Care Provider] - 3-5 Days [facility] [Provider Group] - 3-5 Days [facility] [Provider Group] - 3-5 Days MATTI MALONEY MD [Staff Physician] - 3-5 Days RAFAEL VINCENT MD [Staff Physician] - 3-5 Days Time of Disposition: 18:06
[2019-09-18 16:40] LABS: Basophils % (Manual) 0 % (0.0-1.8); Eosinophils % (Manual) 0 % (0.0-4.3); Total Cells Counted 100
[2019-09-18 16:41] LABS: RBC Morphology Normal
== END 2019-09-18 18:07 | disposition home or self-care (01) ==
LOC: ED 13:37
DX: R07.9 Chest pain, unspecified (principal); R06.02 Shortness of breath
CPT/HCPCS: 36415; 71046; 71275; 80053; 84484; 84703; 85007; 85025; 85379; 85610; 85730; 93005; 93010; 99284; Q9967

== ENCOUNTER 2019-10-14 09:31 | Day surgery (SDC) | payer BC ==
[~2019-10-14 09:31] MED LIST changes: -GABAPENTIN 300 MG CAP PO SCH; +GABAPENTIN 400 MG CAP PO SCH
--- NOTE | 2019-10-14 09:53 | Short Stay Summary ---
Short Stay Documentation Date of service: 10/14/19 - History H&P: obtained from office - Allergies and Medications Current Medications: Allergies No Known Allergies Allergy (Verified 10/13/19 10:53) Home Medications Medication Instructions Recorded Confirmed Last Taken Type Black Seed Oil 5 ml PO DAILY 06/29/19 10/13/19 06/28/19 09:00 History Calcium D-Gluconate 1 tab PO DAILY 06/29/19 10/13/19 06/28/19 09:00 History [place]-3/Dha/Epa/Fish Oil [Fish Oil 1,600 mg PO DAILY 06/29/19 10/13/19 10/09/19 History 1,600 mg/5 ml Liquid] Multivit-Minerals/Ferrous Fum 9 mg PO DAILY 10/13/19 10/13/19 Unknown History [Complete Multivit-Mineral Liq] oxyCODONE /ACETAMINOPHEN [Percocet 1 tab PO Q6HR PRN 10/13/19 10/13/19 Unknown History 5/325] oxyCODONE ER [oxyCONTIN ER] 10 mg PO Q12HR PRN 10/13/19 10/13/19 Unknown History Active Medications Sodium Chloride (Nacl 0.9% 1000 Ml) 1,000 mls @ 75 mls/hr IV DIRECT MICHAEL Cefazolin Sodium (Ancef/Sterile Water 2 Gm/20 Ml) 2 gm in 20 mls @ 80 mls/hr IV PREOP NR; Protocol Stop: 10/14/19 23:59 - Physical exam General appearance: no acute distress Integumentary: no rash, no growths HEENT: Atraumatic Lungs: Normal air movement Neurological: Normal speech - Brief post op/procedure progress note Date of procedure: 10/14/19 (dictation:[id number]) Pre-op diagnosis: breast cancer Post-op diagnosis: same Procedure: removal of port IVF 800cc min EBL Anesthesia: GETA Findings: thickened tissue in the periphery Surgeon: THIERRY SILVA Estimated blood loss: minimal Pathology: list (midportion of catheter) Specimen disposition: to lab Condition: stable - Hospital course Hospital course: uneventful - Disposition Condition at discharge: Stable Disposition: DC- TO HOME OR SELFCARE Short Stay Discharge Plan Activity: advance as tolerated Diet: regular Wound: open to air, keep clean and dry Special Instructions: no heavy lifting Additional Instructions: Post Operative Instructions Activity: no heavy lifting for next 1 week. May shower tomorrow. Pat dry the wound or wounds. Keep incision sites clean and dry After surgery, start with a light diet. Consider starting with liquids. If you do well, you can advance to a regular diet as you feel comfortable. Apply an ice pack to the wound or wounds for 10-20 minutes at a time. Do this at least 4-5 times a day. You can do it more if he would like. Pain Medication Schedule for the first 2 days after surgery: Gabapentin 600mg twice a day Celebrex (celecoxib) 200mg twice a day Tylenol 500mg four times a day (every 6 hours) After the first 2 days, then take alternating doses of ibuprofen and Tylenol as needed for pain. Take 600 mg of ibuprofen every 6 hours as needed. Take 500 mg of Tylenol every 6 hours as needed. You should alternate these 2 medicines. Make sure you take the ibuprofen with food. It is very important that you use the prescription narcotic pain medicine (hydrocodone) only for very severe pain. Do not take the narcotic medicine before you try using all the medications listed above. We will call you in a couple of days to see how youre doing. If you have any questions or concerns, always feel free to call the clinic ([phone]) at any time. Follow up with: PRIMARY CARE, [Primary Care Provider] - 7 Days Prescriptions: Acetaminophen [Acetaminophen TAB] 500 mg PO QID #8 tablet Celecoxib [celeBREX] 200 mg PO BID #4 cap Gabapentin [Neurontin] 600 mg PO BID #4 tablet HYDROcodone/APAP 5-325 [[place] 5-325 mg TAB] 1 each PO Q6HR PRN #10 tablet PRN Reason: Pain
[2019-10-14] MEDS ORDERED: CELECOXIB 200 MG CAP PO NR (10:30)
[2019-10-14] MEDS ORDERED: ACETAMINOPHEN 500 MG TAB PO NR (10:30)
[2019-10-14] MEDS ORDERED: BUPIVACAINE-EPINEPHRINE/PF 0.5%-1:200,000 (30 ML) VIAL INFILTRATI ONE ×2 (10:33→12:28)
[2019-10-14] MEDS ORDERED: HEPARIN 10,000 UNITS/10 ML VIAL ONE (10:34)
[2019-10-14] MEDS ORDERED: SODIUM CHLORIDE 0.9% 250ML 0 ML ONE (10:34)
[2019-10-14] MEDS ORDERED: fentaNYL 100 MCG/2 ML INJ IV PRN (10:59)
[2019-10-14] MEDS ORDERED: METOCLOPRAMIDE 10 MG/2 ML INJ IV NR (11:00)
[2019-10-14] MEDS ORDERED: SCOPOLAMINE TRANSDERMAL PATCH 72 HR TD NR (11:00)
[2019-10-14] MEDS ORDERED: MIDAZOLAM 2 MG/2 ML INJ IV NR (11:00)
--- NOTE | 2019-10-14 11:01 | Anesthesia Day of Surgery ---
Anesthesia Day of Surgery - Day of Surgery Patient Examined: Yes Patient H&P Reviewed: Yes Patient is NPO: Yes
--- NOTE | 2019-10-14 11:01 | Anesthesia Consultation ---
Anesthesia Consult and Med Hx Date of service: 10/14/19 - Airway Anesthetic Teeth Evaluation: Good ROM Head & Neck: Adequate Mental/Hyoid Distance: Adequate Mallampati Class: Class I Intubation Access Assessment: Good - Pulmonary Exam CTA: Yes - Cardiac Exam Cardiac Exam: RRR - Pre-Operative Health Status ASA Pre-Surgery Classification: ASA2 Proposed Anesthetic Plan: MAC - Pulmonary Hx Smoking: Yes (former smoker quit 3 yrs ago) Hx Respiratory Symptoms: No Hx Sleep Apnea: No (HORACIO PRE SCREEN NEGATIVE) - Cardiovascular System Hx Hypertension: No Hx Heart Attack/AMI: No Hx Percutaneous Transluminal Coronary Angioplasty (PTCA): No - Central Nervous System CVA: No Hx Psychiatric Problems: Yes (anxiety) - Gastrointestinal Hx Gastroesophageal Reflux Disease: Yes (controlled) - Endocrine Hx Renal Disease: No Hx Liver Disease: No Hx Insulin Dependent Diabetes: No Hx Non-Insulin Dependent Diabetes: No Hx Thyroid Disease: No - Hematic Hx Anemia: Yes (LAST HGB/HMT (11.8/35.7) 09/29/2019) - Other Systems Hx Alcohol Use: Yes (WINE QD) Hx Cancer: Yes (Breast Ca s/p chemo and surgery) Hx Obesity: Yes (BMI 32) - Additional Comments Anesthesia Medical History Comments: No hx anesthetic complications.
[2019-10-14] MEDS ORDERED: ONDANSETRON 4 MG/2 ML INJ ONE (11:44)
[2019-10-14] MEDS ORDERED: MIDAZOLAM 2 MG/2 ML INJ ONE (11:44)
[2019-10-14] MEDS ORDERED: PROPOFOL 200 MG/20 ML VIAL IV ONE (11:44)
[2019-10-14] MEDS ORDERED: fentaNYL 100 MCG/2 ML INJ ONE (11:44)
[2019-10-14] MEDS ORDERED: PHENYLEPHRINE/NS 1,000 MCG/10 ML SYRINGE (OR USE) IV ONE (12:13)
[2019-10-14] MEDS ORDERED: LIDOCAINE (1%) 10 MG/1 ML VIAL 20 ML MDV INFILTRATI ONE (12:28)
--- NOTE | 2019-10-14 13:21 | Operative Report ---
PREOPERATIVE DIAGNOSIS: Breast cancer. POSTOPERATIVE DIAGNOSIS: Breast cancer. PROCEDURE: Removal of port, CPT code 71910. ATTENDING PHYSICIAN: Karel Monsalve MD ANESTHESIA: General. ESTIMATED BLOOD LOSS: Minimal. FLUIDS: 800 mL. FINDINGS: Thickened tissue in the periphery of the port in the subcutaneous layer. No evidence of any infection. SPECIMENS: Mid portion of catheter for routine culture. DRAINS: None. DISPOSITION: Stable, transferred to Recovery Room. INDICATIONS: This is a 34-year-old female who we had placed a port in the recent past for chemotherapy related to her breast cancer. She now returns for port removal as her chemotherapy is finished. The patient was assessed to be a reasonable candidate for removal in the operating room. Procedure, risks, benefits were explained to the patient. Risks included but were not limited to infection, bleeding, pain, injury to surrounding structures, possible need for further procedures in the future. The patient understood and consented. OPERATIVE NOTE: The patient was brought to the operating room and placed on the table in supine position. Our initial plan was for local MAC anesthesia; however, even with adequate volume of sedation, the patient was quite combative such that in discussion with anesthesia, we felt it would be safer for her to do an LMA anesthesia. Therefore, once this was established, the patient was prepped and draped in the usual sterile fashion. SCDs were in place. Antibiotics have been given. Time-out was called. The patient had a slightly elongated scar from her initial port placement. I think it is related to the weight of the breast pulling on the incision and causing it to widen. I excised the entire scar. We dissected down to the port itself. I was able to easily free it from the surrounding tissue. We pulled the catheter out. The patient was in Trendelenburg position. Pressure was held over the insertion point at the left internal jugular vein as the assistant boiler operator was holding pressure. I then injected additional local into the surrounding tissue, it was generous with the local. This patient had a lot of preoperative discomfort. She has had discomfort throughout the entire time. I am not quite sure as to why she had so much discomfort, but nonetheless I gave her a large amount of local anesthetic hoping to help her with her postoperative pain control. Wound was thoroughly irrigated. Of note, the subcutaneous tissue and the surrounding area was quite thickened. I do not know if this is related to her constantly rubbing this area causing this thickened reaction, but both the superior and inferior flaps were elevated to minimize tension on the incision. Interrupted 3-0 Vicryl sutures were placed in the dermis and then a running 4-0 Monocryl subcuticular stitch was placed. Skin was cleaned and dried. Dermabond was placed. The patient tolerated the procedure well. There were no complications. All counts were correct at the end of the case. I went outside to speak with her mom, but she was not present in the waiting area. JOB# [id number] ELEUTERIO/SAMUEL
[2019-10-14 14:39] VITALS: BP 106/76
== END 2019-10-14 14:57 | disposition home or self-care (01) ==
LOC: OR 09:31
PROVIDERS: ATTEND Surgery
DX: C50.411 Malignant neoplasm of upper-outer quadrant of right female breast (principal); G62.9 Polyneuropathy, unspecified; E78.00 Pure hypercholesterolemia, unspecified; K21.9 Gastro-esophageal reflux disease without esophagitis; E66.9 Obesity, unspecified; F41.9 Anxiety disorder, unspecified; Z79.899 Other long term (current) drug therapy; Z87.891 Personal history of nicotine dependence; Z90.11 Acquired absence of right breast and nipple; Z68.32 Body mass index [BMI] 32.0-32.9, adult; Z72.89 Other problems related to lifestyle; Z98.890 Other specified postprocedural states; Z86.2 Personal history of diseases of the blood and blood-forming organs and certain disorders involving the immune mechanism
CPT/HCPCS: 36590; 87116; J0690; J2250; J2370; J2405; J2704; J2765; J3010; J7030; J1644; J7050

== ENCOUNTER 2019-10-22 12:35 | Outpatient (CLI) | payer BC ==
[2019-10-22 13:09] LABS: Hematocrit 36.6 % (30.3-42.9); Hemoglobin 12.2 gm/dl (10.1-14.3); Mean Corpuscular HGB Conc 34 % (30-34); Mean Corpuscular Volume 91 fl (79-97); Platelet Count 235 K/mm3 (140-440); Red Blood Count 4.02 M/mm3 (3.65-5.03)
[2019-10-22 13:40] LABS: % Iron Saturation 26.56 %; Alanine Aminotransferase 14 units/L (7-56); Albumin 4.3 g/dL (3.9-5); BUN/Creatinine Ratio 11; Blood Urea Nitrogen 8 mg/dL (7-17); Calcium 9.7 mg/dL (8.4-10.2); Hemolysis Index 2; Iron 81 ug/dL (37-170); Total Iron Binding Capacity 305 mcg/dL (250-450)
[2019-10-25 11:20] LABS: Vitamin D, 25-OH, D2 <4 ng/mL
== END 2019-10-22 12:36 | disposition home or self-care (01) ==
LOC: LAB 12:35
PROVIDERS: ATTEND Internal Medicine Hematology & Oncology
DX: Z51.11 Encounter for antineoplastic chemotherapy (principal); Z51.89 Encounter for other specified aftercare; D64.9 Anemia, unspecified; E66.3 Overweight; M25.50 Pain in unspecified joint; C50.411 Malignant neoplasm of upper-outer quadrant of right female breast; R23.2 Flushing; Z79.899 Other long term (current) drug therapy
CPT/HCPCS: 36415; 80053; 82306; 82607; 82670; 82728; 82747; 83001; 83550; 83615; 85027; 85045; 86300

== ENCOUNTER 2019-11-30 14:30 | Outpatient (CLI) | payer BC | END 2019-11-30 14:31 | disposition home or self-care (01) | LOC: LAB 14:30 | PROVIDERS: ATTEND Internal Medicine Hematology & Oncology | DX: C50.411 Malignant neoplasm of upper-outer quadrant of right female breast (principal); D64.9 Anemia, unspecified; E66.3 Overweight; M25.50 Pain in unspecified joint; R23.2 Flushing; Z51.11 Encounter for antineoplastic chemotherapy; Z51.89 Encounter for other specified aftercare; Z79.899 Other long term (current) drug therapy | CPT/HCPCS: 36415; 82670; 83001 ==

== ENCOUNTER 2020-02-16 11:36 | Outpatient (CLI) | payer BC ==
[2020-02-16 12:09] LABS: Hematocrit 37.7 % (30.3-42.9); Hemoglobin 12.3 gm/dl (10.1-14.3); Mean Corpuscular HGB Conc 33 % (30-34); Mean Corpuscular Volume 89 fl (79-97); Platelet Count 340 K/mm3 (140-440); Red Blood Count 4.23 M/mm3 (3.65-5.03); Red Cell Distribution Width 14.3 % (13.2-15.2)
[2020-02-16 12:29] LABS: Alanine Aminotransferase 10 units/L (7-56); Albumin 4.4 g/dL (3.9-5); BUN/Creatinine Ratio 13; Blood Urea Nitrogen 10 mg/dL (7-17); Calcium 8.9 mg/dL (8.4-10.2); Hemolysis Index 4; Iron 62 ug/dL (37-170); Total Iron Binding Capacity 291 mcg/dL (250-450)
== END 2020-02-16 11:37 | disposition home or self-care (01) ==
LOC: LAB 11:36
PROVIDERS: ATTEND Internal Medicine Hematology & Oncology
DX: Z51.11 Encounter for antineoplastic chemotherapy (principal); Z51.89 Encounter for other specified aftercare; C50.411 Malignant neoplasm of upper-outer quadrant of right female breast; D64.9 Anemia, unspecified; E66.3 Overweight; M25.50 Pain in unspecified joint; R23.2 Flushing; Z79.899 Other long term (current) drug therapy
CPT/HCPCS: 36415; 80053; 82728; 83550; 85027

== ENCOUNTER 2020-04-26 11:43 | Outpatient (CLI) | payer BC ==
--- NOTE | 2020-04-26 12:48 | Ultrasound Report ---
EXAMINATION: Right Complete Breast Ultrasound, 04/26/2020 INDICATION: Personal history of right breast cancer removed last year. Right breast pain and swelling since surge ry, probably related to lymphedema. COMPARISON: Right breast ultrasound 10/29/19. FINDINGS: Complete sonographic evaluation of all 4 quadrants and retroareolar region was performed. There is diffuse skin thickening, more prominent inferiorly. There is a complex fluid collection at t he 9:30 position 13 cm from the nipple at the lumpectomy site. The abnormality measures approximately 4 cm. Additionally there is a small complex fluid collection at the 5:00 position 7 cm from the nipp le at the reduction site measuring approximately 1 cm. There is a 6 mm mildly complicated cyst at the 10:00 position 8 cm from the nipple. I see no evidence of a solid mass or other abnormality. IMPRESSION: Follow up recommendation: Routine yearly BI-RADS Category 2: Benign. Signer Name: Gerardo Mac MD Signed: 04/26/2020 12:44 PM Workstation Name: [id number]
== END 2020-04-26 11:44 | disposition home or self-care (01) ==
LOC: SPVWC 11:43
PROVIDERS: ATTEND Surgery
DX: N60.01 Solitary cyst of right breast (principal); N63.11 Unspecified lump in the right breast, upper outer quadrant; N64.4 Mastodynia; Z85.3 Personal history of malignant neoplasm of breast

== ENCOUNTER 2020-05-27 10:36 | Outpatient (CLI) | payer BC ==
[2020-05-27 11:17] LABS: Basophils % (Auto) 0.7 % (0.0-1.8); Hematocrit 35.1 % (30.3-42.9); Hemoglobin 12.1 gm/dl (10.1-14.3); Lymphocytes # (Auto) 1.5 K/mm3 (1.2-5.4); Lymphocytes % (Auto) 34.4 % (13.4-35.0); Mean Corpuscular HGB Conc 34 % (30-34); Mean Corpuscular Volume 91 fl (79-97); Monocytes # (Auto) 0.2 K/mm3 (0.0-0.8); Monocytes % (Auto) 5.1 % (0.0-7.3); Platelet Count 269 K/mm3 (140-440); Red Blood Count 3.88 M/mm3 (3.65-5.03)
[2020-05-27 11:42] LABS: Alanine Aminotransferase 8 units/L (7-56); Albumin 4.2 g/dL (3.9-5); BUN/Creatinine Ratio 10; Blood Urea Nitrogen 7 mg/dL (7-17); Calcium 9.3 mg/dL (8.4-10.2); Hemolysis Index 0
== END 2020-05-27 10:37 | disposition home or self-care (01) ==
LOC: LAB 10:36
PROVIDERS: ATTEND Internal Medicine Hematology & Oncology
DX: Z51.11 Encounter for antineoplastic chemotherapy (principal); C50.411 Malignant neoplasm of upper-outer quadrant of right female breast; D72.819 Decreased white blood cell count, unspecified; E66.3 Overweight; B37.3 Candidiasis of vulva and vagina; M25.50 Pain in unspecified joint; R23.2 Flushing; Z51.89 Encounter for other specified aftercare; Z79.899 Other long term (current) drug therapy
CPT/HCPCS: 36415; 80053; 82607; 82747; 83615; 85025; 86300

== ENCOUNTER 2020-06-02 10:59 | Outpatient (CLI) | payer BC ==
[2020-06-02 11:20] LABS: Basophils % (Auto) 1.1 % (0.0-1.8); Eosinophils % (Auto) 0.7 % (0.0-4.3); Hematocrit 35.3 % (30.3-42.9); Hemoglobin 12.1 gm/dl (10.1-14.3); Lymphocytes # (Auto) 1.8 K/mm3 (1.2-5.4); Lymphocytes % (Auto) 48.4 % (13.4-35.0); Mean Corpuscular HGB Conc 34 % (30-34); Mean Corpuscular Volume 90 fl (79-97); Monocytes # (Auto) 0.3 K/mm3 (0.0-0.8); Monocytes % (Auto) 7.1 % (0.0-7.3); Platelet Count 251 K/mm3 (140-440); Red Blood Count 3.93 M/mm3 (3.65-5.03); Red Cell Distribution Width 12.9 % (13.2-15.2)
== END 2020-06-02 11:00 | disposition home or self-care (01) ==
LOC: LAB 10:59
PROVIDERS: ATTEND Internal Medicine Hematology & Oncology
DX: C50.411 Malignant neoplasm of upper-outer quadrant of right female breast (principal)
CPT/HCPCS: 36415; 85025; 88184; 88185

== ENCOUNTER 2020-06-26 03:37 | Emergency (ER) | payer BC ==
--- NOTE | 2020-06-26 03:56 | Emergency Department Report ---
ED Abdominal Pain HPI - General Stated Complaint: PAIN Time Seen by Provider: 06/26/20 03:50 - History of Present Illness Initial Comments: Chief complaint chest pain, stomach pain, back pain HPI: This is a 35-year-old female with history of breast cancer in remission who presents with right-sided chest pain for several days. Sharp pain worse with inspiration. Intermittent mild sharp. For several months she has had epigastric tenderness. Hurts to touc. She also has had left flank pain worse with movement for several days.. She is currently taking tamoxifen. MD Complaint: abdominal pain -: days(s), month(s) (Several months) Location: epigastric Severity: moderate Quality: aching Consistency: intermittent Worsens With: movement Associated Symptoms: other (Chest pain left flank pain) - Related Data Home Medications Medication Instructions Recorded Confirmed Last Taken Black Seed Oil 5 ml PO DAILY 06/29/19 10/13/19 10/12/19 Calcium D-Gluconate 1 tab PO DAILY 06/29/19 10/13/19 10/12/19 [place]-3/Dha/Epa/Fish Oil [Fish Oil 1,600 mg PO DAILY 06/29/19 10/13/19 10/12/19 1,600 mg/5 ml Liquid] Multivit-Minerals/Ferrous Fum 9 mg PO DAILY 10/13/19 10/13/19 10/12/19 [Complete Multivit-Mineral Liq] Previous Rx's Medication Instructions Recorded Last Taken Type Acetaminophen [Acetaminophen TAB] 500 mg PO QID #8 tablet 10/14/19 Unknown Rx Celecoxib [celeBREX] 200 mg PO BID #4 cap 10/14/19 Unknown Rx Gabapentin [Neurontin] 600 mg PO BID #4 tablet 10/14/19 Unknown Rx HYDROcodone/APAP 5-325 [[place] 1 each PO Q6HR PRN #10 tablet 10/14/19 Unknown Rx 5-325 mg TAB] Allergies Allergy/AdvReac Type Severity Reaction Status Date / Time No Known Allergies Allergy Verified 10/13/19 10:53 ED Review of Systems ROS: Stated complaint: PAIN Other details as noted in HPI Comment: All other systems reviewed and negative Constitutional: denies: fever, malaise Respiratory: denies: cough, shortness of breath Cardiovascular: chest pain Gastrointestinal: abdominal pain. denies: nausea, vomiting Genitourinary: denies: urgency, dysuria, frequency Musculoskeletal: back pain ED Past Medical Hx - Past Medical History Previous Medical History?: Yes Hx Hypertension: No Hx CVA: No Hx Heart Attack/AMI: No Hx Congestive Heart Failure: No Hx Diabetes: No Hx Deep Vein Thrombosis: No Hx GERD: Yes (WITH CHEMO) Hx Liver Disease: No Hx Renal Disease: No Hx Arthritis: No Hx Seizures: No Hx Asthma: No Hx HIV: No Additional medical history: breast cancer - Surgical History Hx Breast Surgery: Yes (BREAST REDUCTION , R HEMATOMA ) - Social History Smoking Status: Former Smoker - Medications Home Medications: Home Medications Medication Instructions Recorded Confirmed Last Taken Type Black Seed Oil 5 ml PO DAILY 06/29/19 10/13/19 10/12/19 History Calcium D-Gluconate 1 tab PO DAILY 06/29/19 10/13/19 10/12/19 History [place]-3/Dha/Epa/Fish Oil [Fish Oil 1,600 mg PO DAILY 06/29/19 10/13/19 10/12/19 History 1,600 mg/5 ml Liquid] Multivit-Minerals/Ferrous Fum 9 mg PO DAILY 10/13/19 10/13/19 10/12/19 History [Complete Multivit-Mineral Liq] Acetaminophen [Acetaminophen TAB] 500 mg PO QID #8 tablet 10/14/19 Unknown Rx Celecoxib [celeBREX] 200 mg PO BID #4 cap 10/14/19 Unknown Rx Gabapentin [Neurontin] 600 mg PO BID #4 tablet 10/14/19 Unknown Rx HYDROcodone/APAP 5-325 [[place] 1 each PO Q6HR PRN #10 tablet 10/14/19 Unknown Rx 5-325 mg TAB] ED Physical Exam - General General appearance: alert, in no apparent distress - Head Head exam: Present: atraumatic, normocephalic - Eye Eye exam: Present: normal appearance - ENT ENT exam: Present: mucous membranes moist - Neck Neck exam: Present: normal inspection, full ROM - Respiratory Respiratory exam: Present: normal lung sounds bilaterally. Absent: respiratory distress, wheezes, rales, rhonchi - Cardiovascular Cardiovascular Exam: Present: regular rate, normal rhythm, normal heart sounds. Absent: systolic murmur, diastolic murmur, rubs, gallop - GI/Abdominal GI/Abdominal exam: Present: soft, normal bowel sounds. Absent: distended, tenderness, guarding, rebound - Extremities Exam Extremities exam: Present: normal inspection - Neurological Exam Neurological exam: Present: alert, oriented X3 - Psychiatric Psychiatric exam: Present: normal affect, normal mood - Skin Skin exam: Present: warm, dry, intact, normal color. Absent: rash ED Course Vital Signs 06/26/20 06/26/20 05:11 05:40 Temperature 98.2 F Pulse Rate 94 H Respiratory 18 18 Rate Blood Pressure 138/79 [Left] O2 Sat by Pulse 99 Oximetry ED Medical Decision Making - Lab Data Result diagrams: 06/26/20 04:08 06/26/20 04:08 - Radiology Data Radiology results: report reviewed CT angio chest INDICATION: right sided chest pain with inspiration. TECHNIQUE: All CT scans at this location are performed using CT dose reduction for ALARA by means of automated exposure control. COMPARISON: None. 09/18/2019 FINDINGS: Mediastinum, max and axillae are negative. Upper abdomen is unremarkable. Pleural-based densities in the right upper lung are nonspecific but could be due to focal pleuritic inflammation. These abnormalities were not present on the previous exam of 09/18/2019 No evidence of pulmonary embolus. IMPRESSION: 1. Negative for pulmonary embolus. 2. Subtle pleural-based densities in the right upper lung anteriorly, possibly focal pleuritis. CT abdomen pelvis w con INDICATION: epigastric pain, left flank pain. TECHNIQUE: All CT scans at this location are performed using CT dose reduction for ALARA by means of automated exposure control. COMPARISON: None available. FINDINGS: Liver, gallbladder, spleen, pancreas, kidneys and adrenals are negative. Abdominal aorta is normal in size. No adenopathy. Several loops of small bowel in the midabdomen are mildly thick walled, suggesting focal enteritis. No free fluid. Pelvis Normal appendix. Uterus, ovaries and urinary bladder appear negative. IMPRESSION: 1. Mild wall thickening of small bowel loops in the midabdomen, suggesting focal enteritis. Etiology cannot be determined. - Medical Decision Making This is a 35-year-old female with a history of breast cancer in remission who presents with pleuritic right-sided chest pain. She also has had intermittent epigastric pain as well as left flank pain. Considering history of malignancy, I and the patient both were concerned for venous thromboembolic disease. CBC chemistry urinalysis all within normal limits. CT of the chest abdomen pelvis revealed right-sided pleuritis as well as small bowel enteritis. Pleurisy differential includes viral, infectious, neoplastic process. Patient understands to take CT records and radiology impression to her oncologist for further evaluation. Patient did receive radiation therapy for the course of her breast cancer treatment. Radiation enteritis is a concern. Patient referred [place] stro[place]. Patient also given referral to outpatient medicine physician. Critical care attestation.: If time is entered above; I have spent that time in minutes in the direct care of this critically ill patient, excluding procedure time. ED Disposition Clinical Impression: Pleuritis, Enteritis Disposition: DC-01 TO HOME OR SELFCARE Is pt being admited?: No Does the pt Need Aspirin: No Condition: Stable Instructions: Pleurisy (ED) Referrals: MULUGETA HILLIARD MD [Staff Physician] - 3-5 Days AXEL VANN MD [Staff Physician] - 3-5 Days
[2020-06-26] MEDS ORDERED: oxyCODONE /ACETAMINOPHEN 5-325MG TAB PO ONE (03:57)
[2020-06-26 04:35] LABS: Basophils % (Auto) 0.8 % (0.0-1.8); Eosinophils # (Auto) 0.1 K/mm3 (0.0-0.4); Hematocrit 34.6 % (30.3-42.9); Hemoglobin 11.8 gm/dl (10.1-14.3); Lymphocytes # (Auto) 2.2 K/mm3 (1.2-5.4); Lymphocytes % (Auto) 41.8 % (13.4-35.0); Mean Corpuscular HGB Conc 34 % (30-34); Mean Corpuscular Volume 91 fl (79-97); Monocytes # (Auto) 0.4 K/mm3 (0.0-0.8); Platelet Count 258 K/mm3 (140-440); Red Blood Count 3.78 M/mm3 (3.65-5.03); Red Cell Distribution Width 13.3 % (13.2-15.2)
[2020-06-26 04:38] LABS: Bilirubin,Urine NEG (Negative); Blood,Urine SM (Negative); Color,Urine Straw (Yellow); Protein,Urine <15 mg/dL mg/dL (Negative); Urobilinogen,Urine < 2.0 mg/dL (<2.0)
[2020-06-26] MEDS ORDERED: PROMETHAZINE 25 MG TAB PO ONE (04:41)
[2020-06-26] MEDS ORDERED: PROMETHAZINE 25 MG TAB ONE (04:43)
[2020-06-26 04:44] LABS: BUN/Creatinine Ratio 20; Blood Urea Nitrogen 16 mg/dL (7-17); Calcium 8.8 mg/dL (8.4-10.2); Hemolysis Index 9
--- NOTE | 2020-06-26 05:07 | Cat Scan Report ---
CT angio chest INDICATION: right sided chest pain with inspiration. TECHNIQUE: All CT scans at this location are performed using CT dose reduction for ALARA by means of automated e xposure control. COMPARISON: None. 09/18/2019 FINDINGS: Mediastinum, max and axillae are negative. Upper abdomen is unremarkable. Pleural-based densities in the right upper lung are nonspecific but could be due to focal pleuritic inflammation. These abnorma lities were not present on the previous exam of 09/18/2019 No evidence of pulmonary embolus. IMPRESSION: 1. Negative for pulmonary embolus. 2. Subtle pleural-based densities in the right upper lung anteriorly, possibly focal pleuritis. Signer Name: Marcial Chandler MD Signed: 06/26/2020 5:02 AM Workstation Name: [id number]
--- NOTE | 2020-06-26 05:10 | Cat Scan Report ---
CT abdomen pelvis w con INDICATION: epigastric pain, left flank pain. TECHNIQUE: All CT scans at this location are performed using CT dose reduction for ALARA by means of automated e xposure control. COMPARISON: None available. FINDINGS: Liver, gallbladder, spleen, pancreas, kidneys and adrenals are negative. Abdominal aorta is normal in size. No adenopathy. Several loops of small bowel in the midabdomen are mildly thick walled, suggest ing focal enteritis. No free fluid. Pelvis Normal appendix. Uterus, ovaries and urinary bladder appear negative. IMPRESSION: 1. Mild wall thickening of small bowel loops in the midabdomen, suggesting focal enteritis. Etiology cannot be determined. Signer Name: Marcial Chandler MD Signed: 06/26/2020 5:06 AM Workstation Name: [id number]
[2020-06-26 05:48] VITALS: BP 138/79
== END 2020-06-26 05:50 | disposition home or self-care (01) ==
LOC: ED 03:37
DX: R09.1 Pleurisy (principal); K52.9 Noninfective gastroenteritis and colitis, unspecified; K21.9 Gastro-esophageal reflux disease without esophagitis; Z98.890 Other specified postprocedural states; Z87.891 Personal history of nicotine dependence; Z79.899 Other long term (current) drug therapy
CPT/HCPCS: 36415; 71275; 74177; 80048; 81001; 84703; 85025; 99284; Q0169; Q9967

== ENCOUNTER 2020-11-01 09:17 | Outpatient (CLI) | payer BC ==
--- NOTE | 2020-11-01 11:06 | Mammography Report ---
DIGITAL SCREENING MAMMOGRAM WITH TOMOSYNTHESIS WITH CAD, 11/01/2020 CLINICAL INFORMATION / INDICATION: Routine Screening Mammography. TECHNIQUE: Digital bilateral 2D and 3D mammography with tomosynthesis was obtained in the craniocaud al and mediolateral oblique projections. Computer-Aided Detection (CAD) analysis was used for interp retation of this study. COMPARISON: 10/29/2019, 09/25/2017 FINDINGS: Breast Density: There are scattered areas of fibroglandular density. No dominant mass, suspicious calcifications, or architectural distortion in either breast. There are bilateral reduction changes with similar scarring of the right breast. IMPRESSION: No mammographic evidence of malignancy. Follow up recommendation: Routine yearly BI-RADS Category 2: Benign. A "normal" or negative report should not discourage follow up or biopsy of a clinically significant f inding. A written summary of these findings will be mailed to the patient. The patient will be entered into a mammography reporting system which will generate a reminder letter for the patient's next appointmen t at the appropriate interval. The [employer] recommends yearly mammograms starting at age 40 and continuing as l yulissa as a woman is in good health. Breast MRI is recommended for women with an approximate 20-25% or greater lifetime risk of breast cancer, including women with a strong family history of breast or ova brian cancer or who have been treated for Hodgkin's disease. Signer Name: Thomas Cuevas MD Signed: 11/01/2020 11:01 AM Workstation Name: [id number]
== END 2020-11-01 09:18 | disposition home or self-care (01) ==
LOC: SPVWC 09:17
PROVIDERS: ATTEND Surgery
DX: Z12.31 Encounter for screening mammogram for malignant neoplasm of breast (principal)
CPT/HCPCS: 77063; 77067

== ENCOUNTER 2020-11-15 10:04 | Outpatient (CLI) | payer BC ==
[2020-11-15 11:59] LABS: Hematocrit 35.4 % (30.3-42.9); Hemoglobin 11.9 gm/dl (10.1-14.3); Mean Corpuscular HGB Conc 34 % (30-34); Mean Corpuscular Volume 92 fl (79-97); Platelet Count 242 K/mm3 (140-440); Red Blood Count 3.87 M/mm3 (3.65-5.03); Red Cell Distribution Width 13.1 % (13.2-15.2)
[2020-11-15 12:27] LABS: % Iron Saturation 24.49 %; Alanine Aminotransferase 9 units/L (7-56); BUN/Creatinine Ratio 14; Blood Urea Nitrogen 11 mg/dL (7-17); Calcium 8.7 mg/dL (8.4-10.2); Hemolysis Index 4; Iron 72 ug/dL (37-170); Total Iron Binding Capacity 294 mcg/dL (250-450)
== END 2020-11-15 10:05 | disposition home or self-care (01) ==
LOC: LAB 10:04
DX: Z51.11 Encounter for antineoplastic chemotherapy (principal); Z51.89 Encounter for other specified aftercare; C50.411 Malignant neoplasm of upper-outer quadrant of right female breast; D72.819 Decreased white blood cell count, unspecified; B37.3 Candidiasis of vulva and vagina; E66.3 Overweight; M25.50 Pain in unspecified joint; R23.2 Flushing; Z79.899 Other long term (current) drug therapy
CPT/HCPCS: 36415; 80053; 82306; 82607; 82728; 83550; 85027; 86300

== ENCOUNTER 2020-11-16 13:07 | Outpatient (CLI) | payer BC ==
--- NOTE | 2020-11-16 15:09 | Magnetic Resonance Report ---
Bilateral breast MR without and with contrast. History: Status post right breast lumpectomy, follow-up evaluation of enhancement noted previously on MRI. Comparison: 11/01/2020, 05/11/2020, 05/03/2020. Technique: Multiplanar multisequence MR images of the breast were obtained before and after the intra venous administration of 17 mL of MultiHance contrast agent. Post processing analysis and review was performed on a separate computer workstation. Findings: Breast composition is heterogenously dense. There is minimal background parenchymal enhancement withi n both breasts. RIGHT BREAST: Lumpectomy change within the right breast at the 9:00 posterior position is again noted . The overall degree of enhancement seen in this region is decreased from prior exam. A few stippled areas of primarily rim-like enhancement are noted surrounding small pockets of fat. The overall appe arance is most consistent with fat necrosis. There is no interval detrimental change or new suspiciou s findings. A prior ultrasound showed no evidence of malignancy. LEFT BREAST: No enhancing mass, dominant focus, or other abnormal enhancement within the left breast. No abnormal axillary or internal mammary lymph nodes. Impression: No evidence of malignancy. Enhancement noted in the right lateral breast (site of prior lumpectomy) i s decreased in degree and appears most consistent with fat necrosis. BIRADS 2: Benign A normal MRI does not exclude the presence of some forms of breast malignancy as literature reports s uggest that some forms of ductal carcinoma in situ or lobular carcinoma, particularly, may not be det ected on MRI. The sensitivity and specificity of MRI for cancers under 5 mm may be reduced. MRI does not replace the recommendation for annual conventional mammographic evaluation and should be used as an adjunct to mammography and physical examination as necessary. Signer Name: Emeka Ybarra MD Signed: 11/16/2020 3:05 PM Workstation Name: [id number]
== END 2020-11-16 13:08 | disposition home or self-care (01) ==
LOC: SPVWC 13:07
PROVIDERS: ATTEND Surgery
DX: C50.411 Malignant neoplasm of upper-outer quadrant of right female breast (principal); Z85.3 Personal history of malignant neoplasm of breast; Z90.11 Acquired absence of right breast and nipple
CPT/HCPCS: A9577; C8908; 77049

== ENCOUNTER 2020-11-28 10:30 | Outpatient (CLI) | payer BC ==
[2020-11-28 11:44] LABS: Blood Urea Nitrogen 11 mg/dL (7-17)
--- NOTE | 2020-11-28 13:25 | Cat Scan Report ---
CT abdomen pelvis w con, CT chest w con INDICATION / CLINICAL INFORMATION: Breast cancer. Chest and abdominal pain.. TECHNIQUE: Axial CT images were obtained through the chest, abdomen and pelvis. All CT scans at this location ar e performed using CT dose reduction for ALARA by means of automated exposure control. COMPARISON: CT chest and CT abdomen from 06/26/2020 FINDINGS: CHEST: Lungs: Minimal scarring in the subpleural right middle lobe which could be related to radiation in th e correct clinical setting. Lungs are clear No pleural effusion. No pneumothorax. Heart: No significant abnormality. Mediastinum: No significant abnormality. ADDITIONAL FINDINGS: Postoperative changes from prior right lumpectomy. The breast parenchyma is not significantly changed from prior exam. Please see prior mammograms. ABDOMEN and PELVIS: Liver: No significant abnormality. Biliary: No significant abnormality. Spleen: No significant abnormality. Unenlarged. Pancreas: No significant abnormality. Adrenals: No significant abnormality. Kidneys: No significant abnormality. Lymphatics: No lymphadenopathy. Vasculature: No significant abnormality. Bowel: No significant abnormality. Normal appendix. Pelvis: No significant abnormality. Osseous Structures: No aggressive osseous lesion. Additional Findings: None IMPRESSION: 1. No acute abnormality of the chest, abdomen or pelvis. 2. No evidence for metastasis. Signer Name: Cristian Curiel MD Signed: 11/28/2020 1:20 PM Workstation Name: [id number]
== END 2020-11-28 10:31 | disposition home or self-care (01) ==
LOC: CT 10:30
PROVIDERS: ATTEND Internal Medicine Hematology & Oncology
DX: R23.2 Flushing (principal); Z90.10 Acquired absence of unspecified breast and nipple
CPT/HCPCS: 36415; 71260; 74177; 82565; 84520; Q9967

== ENCOUNTER 2021-03-17 14:38 | Outpatient (CLI) | payer BC ==
--- NOTE | 2021-03-17 16:01 | Vascular Lab Report ---
DUPLEX DOPPLER UPPER EXTREMITY VENOUS, RIGHT INDICATION / CLINICAL INFORMATION: RT.ARM PAIN. TECHNIQUE: Duplex doppler imaging was performed through the veins of the right upper extremity using venous comp ression and other maneuvers. COMPARISON: None available. FINDINGS: RIGHT INTERNAL JUGULAR VEIN: Negative. RIGHT SUBCLAVIAN VEIN: Negative. RIGHT AXILLARY VEIN: Negative. RIGHT BRACHIAL VEIN: Negative. RIGHT FOREARM VEINS: Negative. RIGHT BASILIC VEIN (SUPERFICIAL): Negative. ADDITIONAL FINDINGS: None. IMPRESSION: 1. No sonographic evidence for DVT. Signer Name: Demario Adame MD Signed: 03/17/2021 3:56 PM Workstation Name: [id number]
== END 2021-03-17 14:39 | disposition home or self-care (01) ==
LOC: VAS 14:38
PROVIDERS: ATTEND Surgery
DX: N64.4 Mastodynia (principal); Z85.3 Personal history of malignant neoplasm of breast

== ENCOUNTER 2021-03-22 12:24 | Outpatient (CLI) | payer BC ==
[2021-03-22 12:56] LABS: Hemoglobin 12.4 gm/dl (10.1-14.3); Mean Corpuscular HGB Conc 34 % (30-34); Mean Corpuscular Volume 90 fl (79-97); Platelet Count 256 K/mm3 (140-440); Red Blood Count 4.09 M/mm3 (3.65-5.03); Red Cell Distribution Width 12.9 % (13.2-15.2)
[2021-03-22 13:23] LABS: Alanine Aminotransferase 12 units/L (7-56); Albumin 4.6 g/dL (3.9-5); BUN/Creatinine Ratio 10; Blood Urea Nitrogen 8 mg/dL (7-17); Calcium 9.4 mg/dL (8.4-10.2); Hemolysis Index 0
[2021-03-22 16:18] LABS: Iron 132 ug/dL (37-170)
[2021-03-22 16:41] LABS: Total Iron Binding Capacity 345 mcg/dL (250-450)
[2021-03-25 18:36] LABS: Vitamin D, 25-OH, D2 <4 ng/mL
[2021-03-27 22:38] LABS: ANA Screen, IFA Positive (Negative)
== END 2021-03-22 12:25 | disposition home or self-care (01) ==
LOC: LAB 12:24
PROVIDERS: ATTEND Internal Medicine Hematology & Oncology
DX: Z51.89 Encounter for other specified aftercare (principal); Z51.11 Encounter for antineoplastic chemotherapy; C50.411 Malignant neoplasm of upper-outer quadrant of right female breast; B37.3 Candidiasis of vulva and vagina; D64.9 Anemia, unspecified; D72.829 Elevated white blood cell count, unspecified; E66.3 Overweight; M25.50 Pain in unspecified joint; R23.2 Flushing; Z79.899 Other long term (current) drug therapy
CPT/HCPCS: 36415; 80053; 82306; 82607; 82728; 83550; 83735; 84436; 84443; 85027; 86038; 86300; 86431

== ENCOUNTER 2021-03-30 08:11 | Outpatient (CLI) | payer BC ==
--- NOTE | 2021-03-30 12:21 | PET Report ---
PET-CT SCAN INDICATION / CLINICAL INFORMATION: Malignant neoplasm of breast. STAGING: Re-staging TECHNIQUE: Tumor imaging, positron emission tomography (PET) with concurrently acquired computed tomography (CT) for attenuation correction and anatomical localization; Skull Base to Mid Thigh - DOSE: 14.618 mCi F-18 FDG was administered IV per protocol in the right hand - GLUCOSE: Patient's blood glucose at that time was (mg/dL): 76 - UPTAKE TIME: PET scan performed approximately 60 minutes after radiotracer administration. - CT SCAN DESCRIPTION: No oral or IV contrast. All CT scans at this location are performed using CT d ose reduction for GoozzyRA by means of automated exposure control. COMPARISON: CT of the chest, abdomen, pelvis from 11/28/2020. FINDINGS: HEAD / NECK: No abnormal radiotracer uptake in the neck. No significant CT abnormality. CHEST: No abnormal radiotracer uptake in the chest. Postoperative changes of the right breast. ABDOMEN / PELVIS: No abnormal radiotracer uptake in the abdomen. No significant CT abnormality. LOWER EXTREMITIES: No abnormal radiotracer uptake in the visualized lower extremities. No significant CT abnormality. SKELETAL STRUCTURES: No hypermetabolic bone lesions. No significant CT abnormality. ADDITIONAL FINDINGS: No additional significant findings. IMPRESSION: Negative PET. No FDG avid neoplastic disease. Signer Name: Hipolito Sibley MD Signed: 03/30/2021 12:17 PM Workstation Name: [id number]
== END 2021-03-30 08:12 | disposition home or self-care (01) ==
LOC: PET 08:11
PROVIDERS: ATTEND Internal Medicine Hematology & Oncology
DX: C50.411 Malignant neoplasm of upper-outer quadrant of right female breast (principal)
CPT/HCPCS: 78815; 82962; A9552

== ENCOUNTER 2021-04-07 09:29 | Outpatient (CLI) | payer BC ==
--- NOTE | 2021-04-07 12:40 | Magnetic Resonance Report ---
NONENHANCED AND CONTRAST ENHANCED MR SCAN OF THE BRAIN: INDICATION / CLINICAL INFORMATION: HEAVINESS AND FOGGY BRAIN. TECHNIQUE: Multiplanar, multisequence MR images of the brain obtained before and after gadolinium based contrast COMPARISON: None available. FINDINGS: BRAIN / INTRACRANIAL CONTENTS: No acute ischemia, acute hemorrhage, mass effect, midline shift, or hy drocephalus. No chronic infarct or atrophy. No significant white matter abnormality. No enhancing pa renchymal or meningeal lesions CRANIOCERVICAL JUNCTION: No significant abnormality. VASCULAR FLOW-VOIDS: No significant abnormality. ORBITS: No significant abnormality of visualized orbits. SINUSES / MASTOIDS: Retention cyst in the inferior left sphenoid sinus ADDITIONAL FINDINGS: None. IMPRESSION: 1. Normal MR scan of the brain Signer Name: Darrius Srivastava MD Signed: 04/07/2021 12:36 PM Workstation Name: [id number]
== END 2021-04-07 09:30 | disposition home or self-care (01) ==
LOC: MRI 09:29
PROVIDERS: ATTEND Internal Medicine Hematology & Oncology
DX: C50.411 Malignant neoplasm of upper-outer quadrant of right female breast (principal)
CPT/HCPCS: 70553; A9575

== ENCOUNTER 2021-07-21 13:44 | Outpatient (CLI) | payer BC ==
[2021-07-21 14:42] LABS: Hematocrit 37.4 % (30.3-42.9); Hemoglobin 12.2 gm/dl (10.1-14.3); Mean Corpuscular HGB Conc 33 % (30-34); Mean Corpuscular Volume 90 fl (79-97); Platelet Count 291 K/mm3 (140-440); Red Blood Count 4.15 M/mm3 (3.65-5.03); Red Cell Distribution Width 13.1 % (13.2-15.2)
[2021-07-21 15:04] LABS: Alanine Aminotransferase 11 units/L (7-56); Albumin 4.4 g/dL (3.9-5); Blood Urea Nitrogen 16 mg/dL (7-17); Calcium 9.5 mg/dL (8.4-10.2); Hemolysis Index 4
[2021-07-21 15:06] LABS: BUN/Creatinine Ratio 23
[2021-07-21 16:28] LABS: Myelocytes # (Manual) 0.1 K/mm3; Total Cells Counted 100
[2021-07-21 16:29] LABS: Platelet Estimate Consistent w Auto
== END 2021-07-21 13:45 | disposition home or self-care (01) ==
LOC: LAB 13:44
PROVIDERS: ATTEND Internal Medicine Hematology & Oncology
DX: Z51.89 Encounter for other specified aftercare (principal); Z51.11 Encounter for antineoplastic chemotherapy; C50.411 Malignant neoplasm of upper-outer quadrant of right female breast; R23.2 Flushing; R76.8 Other specified abnormal immunological findings in serum; M79.622 Pain in left upper arm; M79.621 Pain in right upper arm; M25.50 Pain in unspecified joint; L76.82 Other postprocedural complications of skin and subcutaneous tissue; E66.9 Obesity, unspecified; E66.3 Overweight; D72.819 Decreased white blood cell count, unspecified; D64.9 Anemia, unspecified; B37.3 Candidiasis of vulva and vagina; Z79.899 Other long term (current) drug therapy
CPT/HCPCS: 36415; 80053; 82306; 85007; 85025; 86300

== ENCOUNTER 2021-08-20 12:01 | Emergency (ER) | payer BC ==
[2021-08-20 12:06] VITALS: BP 125/83
--- NOTE | 2021-08-20 12:52 | Emergency Department Report ---
HPI - General Chief Complaint: Chest Pain Time Seen by Provider: 08/20/21 12:26 - HPI HPI: MSE 4 The patient is a 36-year-old female present with chief complaint of chest pain. Patient states she was walking in [employer] when she developed substernal chest pain rating to her back and neck. Patient states the pain is been intermittent and associated with diaphoresis. Patient denies shortness of breath nausea or vomiting. Patient denies cough. Patient states she has been vaccinated against COVID-19. Patient also complains of cramping in both eyes for the past 3 months. Patient has a history of breast CA status post lumpectomy chemotherapy and radiation (2019). Patient states she never had a stress test or cardiac catheterization ED Past Medical Hx - Past Medical History Hx GERD: Yes (WITH CHEMO) Hx of Cancer: Yes (Breast CA s/p lumpectomy, XRT and chemo) Additional medical history: Hypercholesterolemia - Surgical History Hx Breast Surgery: Yes (BREAST REDUCTION , R HEMATOMA, lumpectomy) - Family History Family history: no significant - Social History Smoking Status: Never Smoker Substance Use Type: Alcohol - Medications Home Medications: Home Medications Medication Instructions Recorded Confirmed Last Taken Type Tamoxifen Citrate 10 mg PO 08/20/21 08/20/21 09:00 History ED Review of Systems ROS: Stated complaint: CHEST PAIN Other details as noted in HPI Constitutional: no symptoms reported Eyes: denies: eye pain ENT: denies: throat pain Respiratory: denies: shortness of breath Cardiovascular: chest pain Endocrine: no symptoms reported Gastrointestinal: denies: nausea, vomiting Musculoskeletal: back pain, myalgia Neurological: denies: headache Physical Exam - Physical Exam Vital Signs: Vital Signs 08/20/21 08/20/21 12:05 12:15 Temperature 98.1 F Pulse Rate 70 Respiratory 70 H Rate Blood Pressure 125/83 [Left] O2 Sat by Pulse 99 97 Oximetry Physical Exam: GENERAL: The patient is well-developed well-nourished female lying on stretcher not appearing to be in acute distress. [] HEENT: Normocephalic. Atraumatic. Extraocular motions are intact. Patient has moist mucous membranes. NECK: Supple. Trachea midline CHEST/LUNGS: Clear to auscultation. There is no respiratory distress noted. HEART/CARDIOVASCULAR: Regular. There is no tachycardia. There is no gallop rub or murmur. ABDOMEN: Abdomen is soft, nontender. Patient has normal bowel sounds. There is no abdominal distention. SKIN: There is no rash. There is no edema. There is no diaphoresis. NEURO: The patient is awake, alert, and oriented. The patient is cooperative. The patient has no focal neurologic deficits. The patient has normal speech. GCS 15 MUSCULOSKELETAL: There is no evidence of acute injury. ED Course Vital Signs 08/20/21 08/20/21 12:05 12:15 Temperature 98.1 F Pulse Rate 70 Respiratory 70 H Rate Blood Pressure 125/83 [Left] O2 Sat by Pulse 99 97 Oximetry ED Medical Decision Making - Lab Data Result diagrams: 08/20/21 12:52 08/20/21 12:52 - EKG Data -: EKG Interpreted by Me EKG shows normal: sinus rhythm Rate: normal - EKG Data When compared to previous EKG there are: previous EKG unavailable Interpretation: nonspecific ST-T wave dinorah (T wave inversion lead III) - Radiology Data Radiology results: report reviewed (Chest x-ray), image reviewed (Chest x-ray) interpreted by me: Chest x-ray-no definite focal infiltrates, pneumothorax [facility] [address] [place] [address] XRay Report Signed Patient: ANKUR INIGUEZ MR#: [id number] : 1985 Acct:[id number] Age/Sex: 36 / F ADM Date: 08/20/21 Loc: ED Attending Dr: Ordering Physician: GARETH QUIROZ MD Date of Service: 08/20/21 Procedure(s): XR chest routine 2V Accession Number(s): [id number] cc: GARETH QUIROZ MD Fluoro Time In Minutes: CHEST 2 VIEWS INDICATION / CLINICAL INFORMATION: chest pain. FINDINGS: SUPPORT DEVICES: None. HEART / MEDIASTINUM: No significant abnormality. LUNGS / PLEURA: No significant pulmonary or pleural abnormality. No pneumothorax. ADDITIONAL FINDINGS: No significant additional findings. IMPRESSION: 1. No acute findings. Signer Name: Tray Thorne MD Signed: 08/20/2021 2:14 PM Workstation Name: [id number] Transcribed By: BC Dictated By: Tray Thorne MD Electronically Authenticated By: Tray Thorne MD Signed Date/Time: 08/20/211413 DD/ 13 TD/TT: Print Cancel - Differential Diagnosis ACS, PE, pericarditis, GERD, pleurisy, anxiety Critical care attestation.: If time is entered above; I have spent that time in minutes in the direct care of this critically ill patient, excluding procedure time. ED Disposition Clinical Impression: Chest pain Disposition: LEFT AWOL/ELOPED Is pt being admited?: No Does the pt Need Aspirin: No Condition: Undetermined Instructions: Nonspecific Chest Pain, Adult Time of Disposition: 15:07 (Patient eloped) Heart Score - HEART Score History: Slightly suspicious EKG: Non-specific Age: < 45 Risk factors: 1-2 risk factors Troponin: < normal limit HEART Score: 2 - EKG Read Time Time EKG Completed: 12:10 EKG Read Time: 12:20
[2021-08-20 13:21] LABS: Basophils % (Auto) 0.5 % (0.0-1.8); Hematocrit 38.4 % (30.3-42.9); Hemoglobin 12.4 gm/dl (10.1-14.3); Lymphocytes # (Auto) 1.9 K/mm3 (1.2-5.4); Lymphocytes % (Auto) 48.5 % (13.4-35.0); Mean Corpuscular HGB Conc 32 % (30-34); Mean Corpuscular Volume 90 fl (79-97); Monocytes # (Auto) 0.2 K/mm3 (0.0-0.8); Monocytes % (Auto) 5.5 % (0.0-7.3); Platelet Count 298 K/mm3 (140-440); Red Blood Count 4.25 M/mm3 (3.65-5.03); Red Cell Distribution Width 13.7 % (13.2-15.2)
[2021-08-20 13:45] LABS: Creatine Kinase MB 1.3 ng/mL (0.0-4.0)
[2021-08-20 13:46] LABS: Blood Urea Nitrogen 16 mg/dL (7-17); Calcium 9.3 mg/dL (8.4-10.2); Hemolysis Index 11
[2021-08-20 13:47] LABS: BUN/Creatinine Ratio 23
--- NOTE | 2021-08-20 14:18 | XRay Report ---
CHEST 2 VIEWS INDICATION / CLINICAL INFORMATION: chest pain. FINDINGS: SUPPORT DEVICES: None. HEART / MEDIASTINUM: No significant abnormality. LUNGS / PLEURA: No significant pulmonary or pleural abnormality. No pneumothorax. ADDITIONAL FINDINGS: No significant additional findings. IMPRESSION: 1. No acute findings. Signer Name: Tray Thorne MD Signed: 08/20/2021 2:14 PM Workstation Name: [id number]
== END 2021-08-20 14:30 | disposition left against medical advice (07) ==
LOC: ED 12:01
DX: R07.81 Pleurodynia (principal); R61 Generalized hyperhidrosis; K21.9 Gastro-esophageal reflux disease without esophagitis; E78.5 Hyperlipidemia, unspecified; Z85.3 Personal history of malignant neoplasm of breast
CPT/HCPCS: 36415; 71046; 80048; 82550; 82553; 84484; 85025; 85379; 93005; 99283

== ENCOUNTER 2021-10-16 13:00 | Outpatient (CLI) | payer BC ==
[2021-10-16 13:51] LABS: Hematocrit 37.3 % (30.3-42.9); Hemoglobin 12.3 gm/dl (10.1-14.3); Mean Corpuscular HGB Conc 33 % (30-34); Mean Corpuscular Volume 90 fl (79-97); Platelet Count 264 K/mm3 (140-440); Red Blood Count 4.17 M/mm3 (3.65-5.03); Red Cell Distribution Width 12.8 % (13.2-15.2)
[2021-10-16 14:09] LABS: Alanine Aminotransferase 13 units/L (7-56); Albumin 4.5 g/dL (3.9-5); Blood Urea Nitrogen 12 mg/dL (7-17); Calcium 9.4 mg/dL (8.4-10.2); Hemolysis Index 4
[2021-10-16 14:19] LABS: BUN/Creatinine Ratio 17
[2021-10-19 12:13] LABS: Vitamin D, 25-OH, D2 <4 ng/mL
== END 2021-10-16 13:01 | disposition home or self-care (01) ==
LOC: LAB 13:00
PROVIDERS: ATTEND Internal Medicine Hematology & Oncology
DX: C50.411 Malignant neoplasm of upper-outer quadrant of right female breast (principal); B37.3 Candidiasis of vulva and vagina; D64.9 Anemia, unspecified
CPT/HCPCS: 36415; 80053; 82306; 85027; 86300

== ENCOUNTER 2021-11-08 10:05 | Outpatient (CLI) | payer BC | END 2021-11-08 10:06 | disposition home or self-care (01) | LOC: SPVWC 10:05 | PROVIDERS: ATTEND Internal Medicine Hematology & Oncology | DX: Z12.31 Encounter for screening mammogram for malignant neoplasm of breast (principal) | CPT/HCPCS: 77063; 77067 ==

== ENCOUNTER 2021-12-09 10:58 | Outpatient (CLI) | payer BC ==
[2021-12-09 12:06] LABS: Hematocrit 37.9 % (30.3-42.9); Hemoglobin 12.8 gm/dl (10.1-14.3); Mean Corpuscular HGB Conc 34 % (30-34); Mean Corpuscular Volume 89 fl (79-97); Platelet Count 270 K/mm3 (140-440); Red Blood Count 4.25 M/mm3 (3.65-5.03)
[2021-12-09 12:21] LABS: Alanine Aminotransferase 11 units/L (7-56); Albumin 4.6 g/dL (3.9-5); BUN/Creatinine Ratio 18; Blood Urea Nitrogen 14 mg/dL (7-17); Calcium 9.7 mg/dL (8.4-10.2); Hemolysis Index 0
[2021-12-13 16:22] LABS: Vitamin D, 25-OH, D2 <4 ng/mL
== END 2021-12-09 10:59 | disposition home or self-care (01) ==
LOC: LAB 10:58
PROVIDERS: ATTEND Internal Medicine Hematology & Oncology
DX: Z51.11 Encounter for antineoplastic chemotherapy (principal); Z51.89 Encounter for other specified aftercare; D64.9 Anemia, unspecified; C50.411 Malignant neoplasm of upper-outer quadrant of right female breast; L76.82 Other postprocedural complications of skin and subcutaneous tissue; B37.3 Candidiasis of vulva and vagina; D72.819 Decreased white blood cell count, unspecified; E66.3 Overweight; E66.9 Obesity, unspecified; M25.50 Pain in unspecified joint; M79.621 Pain in right upper arm; M79.622 Pain in left upper arm; R23.2 Flushing; R76.8 Other specified abnormal immunological findings in serum; Z79.899 Other long term (current) drug therapy
CPT/HCPCS: 36415; 80053; 82306; 83735; 84100; 85027; 86300

== ENCOUNTER 2022-03-16 15:35 | Outpatient (CLI) | payer BC ==
[2022-03-16 16:14] LABS: Hematocrit 40.5 % (30.3-42.9); Hemoglobin 13.2 gm/dl (10.1-14.3); Mean Corpuscular HGB Conc 33 % (30-34); Mean Corpuscular Volume 89 fl (79-97); Platelet Count 256 K/mm3 (140-440); Red Blood Count 4.56 M/mm3 (3.65-5.03); Red Cell Distribution Width 13.3 % (13.2-15.2)
[2022-03-16 16:31] LABS: Alanine Aminotransferase 13 units/L (7-56); Albumin 4.8 g/dL (3.9-5); BUN/Creatinine Ratio 17; Blood Urea Nitrogen 15 mg/dL (7-17); Calcium 9.9 mg/dL (8.4-10.2); Hemolysis Index 9
== END 2022-03-16 15:36 | disposition home or self-care (01) ==
LOC: LAB 15:35
PROVIDERS: ATTEND Internal Medicine Hematology & Oncology
DX: Z51.11 Encounter for antineoplastic chemotherapy (principal); D64.9 Anemia, unspecified; B37.3 Candidiasis of vulva and vagina; C50.411 Malignant neoplasm of upper-outer quadrant of right female breast; D72.819 Decreased white blood cell count, unspecified; E66.3 Overweight; E66.9 Obesity, unspecified; L76.82 Other postprocedural complications of skin and subcutaneous tissue; M25.50 Pain in unspecified joint; M79.621 Pain in right upper arm; M79.622 Pain in left upper arm; R23.2 Flushing; R76.8 Other specified abnormal immunological findings in serum; Z51.89 Encounter for other specified aftercare; Z79.899 Other long term (current) drug therapy
CPT/HCPCS: 36415; 80053; 82306; 85027

== ENCOUNTER 2022-06-20 16:17 | Outpatient (CLI) | payer BC ==
[2022-06-20 17:13] LABS: Alanine Aminotransferase 12 units/L (7-56); Albumin 4.6 g/dL (3.9-5); BUN/Creatinine Ratio 16; Blood Urea Nitrogen 13 mg/dL (7-17); Calcium 9.4 mg/dL (8.4-10.2); Hemolysis Index 7
[2022-06-20 17:20] LABS: Hematocrit 35.9 % (30.3-42.9); Hemoglobin 12.1 gm/dl (10.1-14.3); Mean Corpuscular HGB Conc 34 % (30-34); Mean Corpuscular Volume 89 fl (79-97); Platelet Count 277 K/mm3 (140-440); Red Blood Count 4.01 M/mm3 (3.65-5.03); Red Cell Distribution Width 13.6 % (13.2-15.2)
== END 2022-06-20 16:18 | disposition home or self-care (01) ==
LOC: LAB 16:17
PROVIDERS: ATTEND Internal Medicine Hematology & Oncology
DX: Z51.11 Encounter for antineoplastic chemotherapy (principal); C50.411 Malignant neoplasm of upper-outer quadrant of right female breast; E66.3 Overweight; E66.9 Obesity, unspecified; D64.9 Anemia, unspecified; L76.82 Other postprocedural complications of skin and subcutaneous tissue; M25.50 Pain in unspecified joint; M79.622 Pain in left upper arm; R23.2 Flushing; Z51.89 Encounter for other specified aftercare; Z79.899 Other long term (current) drug therapy
CPT/HCPCS: 36415; 80053; 82306; 85027; 86300